=== PATIENT | male | born 1965 | race Caucasian/White ===

== ENCOUNTER 2020-02-08 15:35 | Outpatient (REF) | payer BC, SELFPAY | END 2020-02-08 15:36 | disposition home or self-care (01) | LOC: HO.LAB 15:35 | PROVIDERS: PCP Internal Medicine; Visit Provider Internal Medicine | DX: Z20.828 Contact with and (suspected) exposure to other viral communicable diseases (principal) | CPT/HCPCS: U0003 ==

== ENCOUNTER 2020-03-25 09:12 | Outpatient (REF) | payer BC, SELFPAY ==
[2020-03-25 10:17] LABS: MANUAL DIFF FLAG NO
[2020-03-25 10:23] LABS: Basophils Absolute Auto 0.1 X10*3/uL (0.0-0.2); Basophils Percent Auto 1.2 % (0-2); Eosinophils Absolute Auto 0.3 X10*3/uL (0.0-0.4); Eosinophils Percent Auto 5.3 % (0-4); Hematocrit 40.7 % (42-52); Hemoglobin 13.2 g/dl (14.0-18.0); Imm Gran Abs Auto 0.03 X10*3/uL (0.00-0.03); Imm Gran Pct Auto 0.5 % (0.0-0.4); Lymphocytes Percent Auto 32.6 % (20-40); Mean Corpuscular HGB Conc 32.4 g/dl (31.0-36.0); Mean Corpuscular Hemoglobin 26.5 pg (27.0-33.0); Mean Corpuscular Volume 81.6 fL (80-98); Mean Platelet Volume 10.7 fL (9.4-12.4); Monocytes Absolute Auto 0.6 X10*3/uL (0.1-1.2); Monocytes Percent Auto 10.5 % (2-11); Neutrophils Percent Auto 49.9 % (45-73); Platelet Count 244 X10*3/uL (160-400); Red Blood Count 4.99 X10*6/uL (4.60-5.80); Red Cell Distribution Width 12.7 % (11.0-16.0)
[2020-03-25 10:48] LABS: Alanine Aminotransferase 85 U/L (0-40); Albumin Level 3.8 g/dL (3.5-5.0); Alkaline Phosphatase 68 U/L (39-117); Anion Gap 14 (12-20); Aspartate Amino Transferase 39 U/L (5-37); Bilirubin Total 0.6 mg/dL (0.0-1.0); Blood Urea Nitrogen 16 mg/dL (9-16); Calcium 8.6 mg/dL (8.4-10.2); Carbon Dioxide 25 mmol/L (22-29); Chloride 106 mmol/L (96-108); Estimated Glomerular Filt Rate 48; Glucose Random 109 mg/dL (60-115); Potassium 4.5 mmol/l (3.3-5.1); Sodium 140 mmol/L (135-145); Total Protein 7.1 g/dL (6.5-8.0)
[2020-03-25 11:10] LABS: TSH reflex Free T4 2.34 mIU/mL (0.32-4.0)
== END 2020-03-25 09:13 | disposition home or self-care (01) ==
LOC: HO.10HDL 09:12
PROVIDERS: Visit Provider Internal Medicine
DX: R42 Dizziness and giddiness (principal)
CPT/HCPCS: 36415; 80053; 84443; 85025

== ENCOUNTER → 2020-04-06 10:40 | Outpatient (REF) | payer BC, SELFPAY ==
--- NOTE | 2020-04-06 10:43 | CA_ITS ---
Transthoracic Echocardiogram Patient (Last, First, Middle): Kevyn Harper, Gender: Male Date of : 1965 Age: 54 Procedure Date: 04/06/2020 Procedure Type: Transthoracic Echocardiogram Location: OP Height: 172.72 cm Weight: 94.35 kg BSA: 2.08 m2 Heart Rate: bpm BP: 120 / 80 mmHg External Grinder Tool: ESME Bateman MD: Bryce Dejesus MD Symptoms: R42 - Dizziness and giddiness Study Quality: Fair ECG Rhythm: Sinus Conclusions: - The left ventricular systolic function is normal. The visually estimated ejection fraction is between 55-60%. - There is mild calcification of the aortic valve. - No obvious valvular pathology seen on this study. Findings Left Ventricle Normal left ventricular cavity size. There is normal left ventricular wall thickness. The left ventricular systolic function is normal. The visually estimated ejection fraction is between 55-60%. There is no evidence of regional wall motion abnormalities. Diastolic function is normal for age. Right Ventricle Normal right ventricular cavity size and systolic function. Atria Both atria are normal in size. Contrast study for right to left shunting is negative. Contrast study for right to left shunting is negative with Valsalva maneuver. Aortic Valve There is a normal trileaflet aortic valve. There is mild calcification of the aortic valve. There is no aortic valve stenosis. There is no aortic valve regurgitation. Mitral Valve The mitral valve appears normal. There is trace mitral valve regurgitation. There is no mitral valve stenosis. Pulmonic Valve The pulmonic valve was not well visualized. Tricuspid Valve Normal tricuspid valve structure. There is no tricuspid valve regurgitation. The pulmonary artery systolic pressure is normal. Great Vessels The aortic annulus, sinuses of valsalva, and asc aorta are normal in size. Venous The inferior vena cava is normal in size and collapses greater than 50% with inspiration. Pericardium/Pleural There is no evidence of pericardial effusion. Prior Study Comparison No significant change compared to prior study dated: 04/28/2018. Recommendations, Care & Conclusions No obvious valvular pathology seen on this study. Measurements 2D Linear Measurements IVSd: 1.00 0.6-0.9/0.6-1.0 cm LVIDd: 4.41 3.9-5.3/4.2-5.9 cm LVIDd Index: 2.12 2.4-3.2/2.2-3.1 cm/m2 LVIDs: 3.17 2.0-3.6 cm LVPWd: 0.98 0.7-1.1 cm Ao Root: 3.10 2.1-3.5 cm LA Diam: 3.00 2.7-3.8/3.0-4.0 cm LAIDs Index: 1.44 1.5-2.3 cm/m2 LV Mass: 182.54 67-162/88-224 g LV Mass Index: 87.76 43-95/49-115 g/m2 LVOT Diam: 2.00 3.0+(-)1.3 cm 2D Systolic Function EF 4C: 53.50 >55% EF 2C: 57.80 >55% EF BiP: 56.00 >55% Mitral Valve MV Pk E: 0.79 MV PK A: 0.74 MV Decel Time: 169.00 E/A: 1.10 E'Lateral: 9.57 E'Medial: 7.25 E/E' Med: 10.80 E/E' Lat: 8.20 PHT: 50.00 MVA PHT: 4.40 Decel Clinch: 4.65 Aortic Valve AoV Pk Samson: 1.58 AoV Mn Samson: 1.04 AoV VTI: 0.26 AoV Pk Grad: 10.00 Aov Mn Grad: 5.00 TRICIA Cont.VTI: 2.71 LVOT LVOT Pk Samson: 1.26 LVOT Mn Samson: 0.84 LVOT VTI: 0.23 LVOT Pk Grad: 6.00 LVOT Mn Grad: 3.00 LVOT Diam: 2.00 LVOT Area: 3.14 Diastolic Function MV Pk E: 0.79 MV Pk A: 0.74 E/A: 1.10 E'Medial: 7.25 E/E' Med: 10.80 E' Laterial: 9.57 E/E' Lat: 8.20 Tricuspid Valve TR Pk Samson: 2.00 TR Pk Grad: 16.00 RA Press: 3.00 RVSP: 19.00 Great Vessels Aorta Ao Root-2D: 3.10 2.0-3.7 cm Ao Asc: 3.10 2.1-3.4 cm Ao Arch: 3.40 Updated in Other Vendor System with Status of Final Marty Chandra MD electronically signed on 04/09/2020 11:46:02 AM with status of Final
== END ==
LOC: HO.CARD 10:40
PROVIDERS: PCP Internal Medicine; Visit Provider Internal Medicine
DX: R42 Dizziness and giddiness (principal)
CPT/HCPCS: 93306

== ENCOUNTER → 2020-04-14 07:43 | Outpatient (REF) | payer BC, SELFPAY ==
--- NOTE | 2020-04-14 07:52 | ECG_ITS ---
Hook-up date: 2020-04-14 09:26:00 Duration: 47:59:00 Test Indications: DIZZINESS, GIDDINESS Medications: 074920 QRS complexes 1 Ventricular ectopics which represent <1 % of total QRS comp. 7 Supraventricular ectopics which represent <1 % of total QRS comp. * Paced QRS complexs which represent % of total QRS comp. VENTRICULAR ECTOPY 1 Isolated 0 Bigeminal Cycles 0 Couplets 0 Runs 0 Beats in Runs * Beats LONGEST at * BPM at :: -- * Beats FASTEST at * BPM at :: -- SUPRAVENTRICULAR ECTOPY 4 Isolated 0 Couplets 1 Runs 3 Beats in Runs 3 Beats LONGEST at 144 BPM at 15:26:52 2020-04-14 3 Beats FASTEST at 144 BPM at 15:26:52 2020-04-14 HEART RATES 58 MIN at 07:53:38 2020-04-15 82 AVG 123 MAX at 15:28:42 2020-04-14 LONGEST RR 1.0560 secs at 07:18:02 2020-04-15 S-T LEVELS Channel 1 - 128 mm at 09:26:00 2020-04-14 - 128 mm at 09:26:00 2020-04-14 Channel 2 - 128 mm at 09:26:00 2020-04-14 - 128 mm at 09:26:00 2020-04-14 Channel 3 - 128 mm at 02:84:51 -- - 128 mm at 02:84:51 Basic rhythm Normal sinus rhythm No long pause or profound bradycardia No dangerous dysrhythm periods No diary submitted Referred By: Bryce Dejesus Overread By: TOLU ARMSTRONG MD
== END ==
LOC: HO.CARD 07:43
PROVIDERS: PCP Internal Medicine; Visit Provider Internal Medicine
DX: R42 Dizziness and giddiness (principal)
CPT/HCPCS: 93225; 93226

== ENCOUNTER 2020-06-07 08:48 | Outpatient (REF) | payer BC, SELFPAY ==
[2020-06-07 10:03] LABS: MANUAL DIFF FLAG NO
[2020-06-07 10:12] LABS: Basophils Absolute Auto 0.1 X10*3/uL (0.0-0.2); Basophils Percent Auto 0.9 % (0-2); Eosinophils Absolute Auto 0.2 X10*3/uL (0.0-0.4); Eosinophils Percent Auto 2.7 % (0-4); Hematocrit 40.2 % (42-52); Hemoglobin 13.2 g/dl (14.0-18.0); Imm Gran Abs Auto 0.02 X10*3/uL (0.00-0.03); Imm Gran Pct Auto 0.3 % (0.0-0.4); Lymphocytes Absolute Auto 2.2 X10*3/uL (1.2-4.9); Mean Corpuscular HGB Conc 32.8 g/dl (31.0-36.0); Mean Corpuscular Hemoglobin 26.8 pg (27.0-33.0); Mean Corpuscular Volume 81.7 fL (80-98); Mean Platelet Volume 10.4 fL (9.4-12.4); Monocytes Absolute Auto 0.7 X10*3/uL (0.1-1.2); Monocytes Percent Auto 9.9 % (2-11); Neutrophils Absolute Auto 3.5 X10*3/uL (2.0-8.3); Neutrophils Percent Auto 53.2 % (45-73); Platelet Count 255 X10*3/uL (160-400); Red Blood Count 4.92 X10*6/uL (4.60-5.80); Red Cell Distribution Width 12.9 % (11.0-16.0); White Blood Count 6.6 X10*3/uL (4.8-10.8)
[2020-06-07 10:29] LABS: Glucose Urine UA NEG (NEG); Leukocyte Esterase Urine NEG (NEG); Nitrite Urine NEG (NEG); PH 5.5 (5.0-8.0); Specific Gravity - Urine >= 1.030 (1.005-1.025); Urine Blood TRACE (NEG); Urine Ketones NEG (NEG); Urine Protein NEG (NEG-TRACE)
[2020-06-07 10:33] LABS: Appearance Urine CLEAR; Color Urine STRAW
[2020-06-07 10:40] LABS: RBC Urine 0-2 /HPF (0); Squamous Epithelial Cell Urine TRACE /LPF; WBC Urine 0 /HPF (0-4)
[2020-06-07 10:49] LABS: Alanine Aminotransferase 44 U/L (0-40); Albumin Level 3.8 g/dL (3.5-5.0); Alkaline Phosphatase 66 U/L (39-117); Anion Gap 11 (12-20); Aspartate Amino Transferase 27 U/L (5-37); Blood Urea Nitrogen 17 mg/dL (9-16); Calcium 8.6 mg/dL (8.4-10.2); Carbon Dioxide 26 mmol/L (22-29); Chloride 107 mmol/L (96-108); Cholesterol 170 mg/dL; Estimated Glomerular Filt Rate 46; Glucose Fasting 100 mg/dL (60-99); HDL Cholesterol 31 mg/dL; Iron 85 mcg/dL (45-160); LDL Cholesterol Calculated 103 mg/dl; Percent Iron Saturation 31 % (15-50); Potassium 4.1 mmol/L (3.3-5.1); Sodium 140 mmol/L (135-145); Total Iron Binding Capacity 275 mcg/dL (228-428); Triglycerides 183 mg/dL; Unsaturated Iron Binding 190 ug/dL
[2020-06-07 10:53] LABS: TSH reflex Free T4 4.32 uIU/mL (0.32-4.0); Vitamin D 25-OH Total 35.2 ng/mL (>30)
[2020-06-07 11:40] LABS: Free T4 (Free Thyroxine) 0.96 ng/dL (0.71-1.85)
== END 2020-06-07 08:49 | disposition home or self-care (01) ==
LOC: HO.10HDL 08:48
PROVIDERS: Visit Provider Internal Medicine
DX: E78.5 Hyperlipidemia, unspecified (principal); N18.30 Chronic kidney disease, stage 3 unspecified; R73.01 Impaired fasting glucose; D50.9 Iron deficiency anemia, unspecified; E55.9 Vitamin D deficiency, unspecified; E66.9 Obesity, unspecified
CPT/HCPCS: 36415; 80053; 80061; 81001; 82306; 83540; 84439; 84443; 85025

== ENCOUNTER 2020-11-03 09:43 | Outpatient (REF) | payer BC, SELFPAY ==
[2020-11-03 11:04] LABS: Alanine Aminotransferase 32 U/L (0-40); Alkaline Phosphatase 63 U/L (39-117); Anion Gap 12 (12-20); Aspartate Amino Transferase 22 U/L (5-37); Bilirubin Total 0.7 mg/dL (0.0-1.0); Blood Urea Nitrogen 14 mg/dL (9-16); Calcium 9.4 mg/dL (8.4-10.2); Carbon Dioxide 26 mmol/L (22-29); Chloride 105 mmol/L (96-108); Estimated Glomerular Filt Rate 45; Glucose Random 107 mg/dL (60-115); Potassium 4.4 mmol/L (3.3-5.1); Sodium 139 mmol/L (135-145); Total Protein 7.2 g/dL (6.5-8.0)
== END 2020-11-03 09:44 | disposition home or self-care (01) ==
LOC: HO.10HDL 09:43
PROVIDERS: PCP Internal Medicine; Visit Provider Internal Medicine
DX: I12.9 Hypertensive chronic kidney disease with stage 1 through stage 4 chronic kidney disease, or unspecified chronic kidney disease (principal); N18.31 Chronic kidney disease, stage 3a
CPT/HCPCS: 36415; 80053

== ENCOUNTER 2021-02-23 08:01 | Outpatient (REF) | payer BC, SELFPAY ==
[2021-02-23 10:15] LABS: MANUAL DIFF FLAG NO
[2021-02-23 10:19] LABS: Basophils Absolute Auto 0.1 X10*3/uL (0.0-0.2); Basophils Percent Auto 0.9 % (0-2); Eosinophils Absolute Auto 0.2 X10*3/uL (0.0-0.4); Eosinophils Percent Auto 3.3 % (0-4); Hematocrit 39.8 % (42.0-52.0); Hemoglobin 13.2 g/dl (14.0-18.0); Imm Gran Abs Auto 0.01 X10*3/uL (0.00-0.03); Imm Gran Pct Auto 0.2 % (0.0-0.4); Lymphocytes Absolute Auto 1.9 X10*3/uL (1.2-4.9); Lymphocytes Percent Auto 32.3 % (20-40); Mean Corpuscular HGB Conc 33.2 g/dl (31.0-36.0); Mean Corpuscular Volume 81.6 fL (80.0-98.0); Mean Platelet Volume 10.4 fL (9.4-12.4); Monocytes Absolute Auto 0.6 X10*3/uL (0.1-1.2); Monocytes Percent Auto 10.9 % (2-11); Neutrophils Percent Auto 52.4 % (45-73); Platelet Count 230 X10*3/uL (160-400); Red Blood Count 4.88 X10*6/uL (4.60-5.80); Red Cell Distribution Width 12.6 % (11.0-16.0); White Blood Count 5.8 X10*3/uL (4.8-10.8)
[2021-02-23 10:32] LABS: Appearance Urine CLEAR; Color Urine YELLOW; Glucose Urine UA NEG (NEG); Leukocyte Esterase Urine NEG (NEG); Nitrite Urine NEG (NEG); Specific Gravity - Urine 1.025 (1.005-1.025); Urine Blood NEG (NEG); Urine Ketones NEG (NEG); Urine Protein NEG (NEG-TRACE)
[2021-02-23 10:54] LABS: Creatinine Urine 126.73 mg/dL; Microalbum/Creatinine Ratio Ur 5.5 ug/mg cr
[2021-02-23 11:05] LABS: Alanine Aminotransferase 34 U/L (0-40); Albumin Level 4.1 g/dL (3.5-5.0); Alkaline Phosphatase 53 U/L (39-117); Anion Gap 13 (12-20); Aspartate Amino Transferase 27 U/L (5-37); Bilirubin Total 1.1 mg/dL (0.0-1.0); Blood Urea Nitrogen 20 mg/dL (9-16); Carbon Dioxide 25 mmol/L (22-29); Chloride 103 mmol/L (96-108); Cholesterol 160 mg/dL; Estimated Glomerular Filt Rate 44; Glucose Fasting 95 mg/dL (60-99); HDL Cholesterol 31 mg/dL; Iron 78 mcg/dL (45-160); LDL Cholesterol Calculated 105 mg/dl; Percent Iron Saturation 28 % (15-50); Potassium 4.4 mmol/L (3.3-5.1); Sodium 137 mmol/L (135-145); Total Iron Binding Capacity 282 mcg/dL (228-428); Total Protein 7.4 g/dL (6.5-8.0); Triglycerides 121 mg/dL; Unsaturated Iron Binding 204 ug/dL
[2021-02-23 11:29] LABS: TSH reflex Free T4 2.04 uIU/mL (0.32-4.0); Vitamin D 25-OH Total 41.5 ng/mL (>30)
[2021-02-23 12:01] LABS: Prostate Specific Antigen Scr 1.37 ng/mL (<0.05-4.0)
== END 2021-02-23 08:02 | disposition home or self-care (01) ==
LOC: HO.10HDL 08:01
PROVIDERS: Visit Provider Internal Medicine
DX: Z00.00 Encounter for general adult medical examination without abnormal findings (principal); Z12.5 Encounter for screening for malignant neoplasm of prostate; E78.00 Pure hypercholesterolemia, unspecified; N18.31 Chronic kidney disease, stage 3a; R03.0 Elevated blood-pressure reading, without diagnosis of hypertension; E66.9 Obesity, unspecified; E55.9 Vitamin D deficiency, unspecified; D50.9 Iron deficiency anemia, unspecified
CPT/HCPCS: 36415; 80053; 80061; 81003; 82043; 82306; 83540; 84153; 84443; 85025

== ENCOUNTER 2021-03-17 09:12 | Outpatient (REF) | payer BC, SELFPAY ==
--- NOTE | ~2021-03-17 | XR_ITS ---
EXAMINATION: XR LUMBOSACRAL SPINE CLINICAL INFORMATION: Low back pain COMPARISON: 04/10/2010 TECHNIQUE: Three views of the lumbosacral spine. FINDINGS: Frontal and lateral radiographs of the lumbar spine show moderate degenerative disc disease at L5-S1, with disc space narrowing and endplate sclerosis. There are also 6 mm of retrolisthesis, unchanged. Posterior osteophyte ridge formation is also evident at this level. Vertebral body height and alignment are otherwise maintained. There are no bone lesions. XR/XR lumbar spine 2-3V IMPRESSION: L5-S1 degenerative disc disease progressed since 04/10/2010, with no significant change in 6 mm of degenerative retrolisthesis.
== END 2021-03-17 09:13 | disposition home or self-care (01) ==
LOC: HO.XRAY 09:12
PROVIDERS: PCP Internal Medicine; Visit Provider Internal Medicine
DX: M54.50 Low back pain, unspecified (principal)
CPT/HCPCS: 72100

== ENCOUNTER 2021-07-05 10:06 | Outpatient (REF) | payer OTHER, SELFPAY ==
[2021-07-05 10:31] LABS: MANUAL DIFF FLAG NO
[2021-07-05 10:37] LABS: Basophils Absolute Auto 0.1 X10*3/uL (0.0-0.2); Basophils Percent Auto 0.9 % (0-2); Eosinophils Absolute Auto 0.2 X10*3/uL (0.0-0.4); Eosinophils Percent Auto 3.6 % (0-4); Hematocrit 40.2 % (42.0-52.0); Hemoglobin 13.3 g/dl (14.0-18.0); Imm Gran Abs Auto 0.02 X10*3/uL (0.00-0.03); Imm Gran Pct Auto 0.4 % (0.0-0.4); Lymphocytes Absolute Auto 1.8 X10*3/uL (1.2-4.9); Lymphocytes Percent Auto 33.1 % (20-40); Mean Corpuscular HGB Conc 33.1 g/dl (31.0-36.0); Mean Corpuscular Hemoglobin 26.9 pg (27.0-33.0); Mean Corpuscular Volume 81.4 fL (80.0-98.0); Mean Platelet Volume 9.9 fL (9.4-12.4); Monocytes Absolute Auto 0.5 X10*3/uL (0.1-1.2); Monocytes Percent Auto 9.4 % (2-11); Neutrophils Absolute Auto 2.9 x10*3/uL (2.0-8.3); Neutrophils Percent Auto 52.6 % (45-73); Platelet Count 259 X10*3/uL (160-400); Red Blood Count 4.94 X10*6/uL (4.60-5.80); Red Cell Distribution Width 12.9 % (11.0-16.0); White Blood Count 5.6 X10*3/uL (4.8-10.8)
[2021-07-05 10:54] LABS: Estimated Average Glucose 117 mg/dL; Hemoglobin A1c % 5.7 %
[2021-07-05 11:30] LABS: Alanine Aminotransferase 35 U/L (0-40); Albumin Level 4.1 g/dL (3.5-5.0); Alkaline Phosphatase 59 U/L (39-117); Anion Gap 9 (12-20); Aspartate Amino Transferase 28 U/L (5-37); Bilirubin Total 1.2 mg/dL (0.0-1.0); Blood Urea Nitrogen 13 mg/dL (9-16); Calcium 9.5 mg/dL (8.4-10.2); Carbon Dioxide 27 mmol/L (22-29); Chloride 104 mmol/L (96-108); Cholesterol 164 mg/dL; Estimated Glomerular Filt Rate 42; Glucose Fasting 103 mg/dL (60-99); HDL Cholesterol 30 mg/dL; LDL Cholesterol Calculated 102 mg/dl; Potassium 4.4 mmol/L (3.3-5.1); Sodium 136 mmol/L (135-145); Total Protein 7.2 g/dL (6.5-8.0); Triglycerides 160 mg/dL
[2021-07-05 11:50] LABS: TSH reflex Free T4 2.24 uIU/mL (0.32-4.0); Vitamin D 25-OH Total 39.6 ng/mL (>30)
[2021-07-05 13:23] LABS: Appearance Urine CLEAR; Color Urine YELLOW; Glucose Urine UA NEG (NEG); Leukocyte Esterase Urine NEG (NEG); Nitrite Urine NEG (NEG); Specific Gravity - Urine 1.025 (1.005-1.025); Urine Blood NEG (NEG); Urine Ketones NEG (NEG); Urine Protein NEG (NEG-TRACE)
== END 2021-07-05 10:07 | disposition home or self-care (01) ==
LOC: HO.10HDL 10:06
PROVIDERS: Visit Provider Internal Medicine
DX: I10 Essential (primary) hypertension (principal); E55.9 Vitamin D deficiency, unspecified; E78.00 Pure hypercholesterolemia, unspecified; R73.01 Impaired fasting glucose
CPT/HCPCS: 36415; 80053; 80061; 81003; 82306; 83036; 84443; 85025

== ENCOUNTER 2021-10-02 11:55 | Outpatient (REF) | payer OTHER, SELFPAY ==
[2021-10-02 13:56] LABS: Hematocrit 40.5 % (42.0-52.0); Hemoglobin 13.4 g/dl (14.0-18.0); Mean Corpuscular HGB Conc 33.1 g/dl (31.0-36.0); Mean Corpuscular Hemoglobin 27.2 pg (27.0-33.0); Mean Corpuscular Volume 82.2 fL (80.0-98.0); Mean Platelet Volume 10.8 fL (9.4-12.4); Platelet Count 245 X10*3/uL (160-400); Red Blood Count 4.93 X10*6/uL (4.60-5.80); Red Cell Distribution Width 12.8 % (11.0-16.0); White Blood Count 5.7 X10*3/uL (4.8-10.8)
[2021-10-02 14:02] LABS: Appearance Urine CLEAR; Color Urine YELLOW; Glucose Urine UA NEG (NEG); Leukocyte Esterase Urine NEG (NEG); Nitrite Urine NEG (NEG); Specific Gravity - Urine >= 1.030 (1.005-1.025); Urine Blood NEG (NEG); Urine Ketones NEG (NEG); Urine Protein NEG (NEG-TRACE)
[2021-10-02 14:45] LABS: Alanine Aminotransferase 23 U/L (0-40); Alkaline Phosphatase 57 U/L (39-117); Anion Gap 11 (12-20); Aspartate Amino Transferase 19 U/L (5-37); Bilirubin Total 0.9 mg/dL (0.0-1.0); Blood Urea Nitrogen 12 mg/dL (9-16); Calcium 9.2 mg/dL (8.4-10.2); Carbon Dioxide 26 mmol/L (22-29); Chloride 105 mmol/L (96-108); Cholesterol 145 mg/dL; Estimated Glomerular Filt Rate 44; Glucose Fasting 144 mg/dL (60-99); HDL Cholesterol 32 mg/dL; LDL Cholesterol Calculated 88 mg/dl; Potassium 4.3 mmol/L (3.3-5.1); RBC Urine 0 /HPF (0); Sodium 138 mmol/L (135-145); Total Protein 7.1 g/dL (6.5-8.0); Triglycerides 127 mg/dL
[2021-10-02 15:36] LABS: Total Protein Urine Random < 7 mg/dL (<12)
== END 2021-10-02 11:56 | disposition home or self-care (01) ==
LOC: HO.10HDL 11:55
PROVIDERS: Visit Provider Internal Medicine
DX: N18.30 Chronic kidney disease, stage 3 unspecified (principal)
CPT/HCPCS: 36415; 80053; 80061; 81001; 84156; 85027

== ENCOUNTER 2022-01-22 09:18 | Outpatient (REF) | payer OTHER, SELFPAY ==
[2022-01-22 10:27] LABS: MANUAL DIFF FLAG NO
[2022-01-22 10:34] LABS: Basophils Absolute Auto 0.1 X10*3/uL (0.0-0.2); Basophils Percent Auto 0.8 % (0-2); Eosinophils Absolute Auto 0.2 X10*3/uL (0.0-0.4); Hematocrit 39.4 % (42.0-52.0); Hemoglobin 13.1 g/dl (14.0-18.0); Imm Gran Abs Auto 0.02 X10*3/uL (0.00-0.03); Imm Gran Pct Auto 0.3 % (0.0-0.4); Lymphocytes Absolute Auto 1.9 X10*3/uL (1.2-4.9); Lymphocytes Percent Auto 29.2 % (20-40); Mean Corpuscular HGB Conc 33.2 g/dl (31.0-36.0); Mean Corpuscular Hemoglobin 26.8 pg (27.0-33.0); Mean Corpuscular Volume 80.6 fL (80.0-98.0); Mean Platelet Volume 10.1 fL (9.4-12.4); Monocytes Absolute Auto 0.5 X10*3/uL (0.1-1.2); Monocytes Percent Auto 8.2 % (2-11); Neutrophils Absolute Auto 3.7 x10*3/uL (2.0-8.3); Neutrophils Percent Auto 58.5 % (45-73); Platelet Count 251 X10*3/uL (160-400); Red Blood Count 4.89 X10*6/uL (4.60-5.80); Red Cell Distribution Width 12.7 % (11.0-16.0); White Blood Count 6.3 X10*3/uL (4.8-10.8)
[2022-01-22 10:59] LABS: Alanine Aminotransferase 23 U/L (0-40); Albumin Level 4.1 g/dL (3.5-5.0); Alkaline Phosphatase 57 U/L (39-117); Anion Gap 14 (12-20); Aspartate Amino Transferase 20 U/L (5-37); Blood Urea Nitrogen 18 mg/dL (9-16); Carbon Dioxide 24 mmol/L (22-29); Chloride 105 mmol/L (96-108); Cholesterol 157 mg/dL; Estimated Glomerular Filt Rate 51; Glucose Fasting 109 mg/dL (60-99); HDL Cholesterol 33 mg/dL; LDL Cholesterol Calculated 102 mg/dl; Potassium 4.5 mmol/L (3.3-5.1); Sodium 138 mmol/L (135-145); Total Protein 7.1 g/dL (6.5-8.0); Triglycerides 110 mg/dL
[2022-01-22 11:22] LABS: Prostate Specific Antigen Scr 1.32 ng/mL (<0.05-4.0); TSH reflex Free T4 1.52 uIU/mL (0.32-4.0); Vitamin D 25-OH Total 38.7 ng/mL (>30)
[2022-01-22 13:58] LABS: Appearance Urine Cloudy; Color Urine Yellow; Glucose Urine UA Negative (Negative); Leukocyte Esterase Urine Negative (Negative); Nitrite Urine Negative (Negative); PH 5.5 (5.0-9.0); Urine Blood Negative (Negative); Urine Ketones Negative (Negative); Urine Protein Negative (Neg-Trace)
== END 2022-01-22 09:19 | disposition home or self-care (01) ==
LOC: HO.10HDL 09:18
PROVIDERS: Visit Provider Internal Medicine
DX: Z00.00 Encounter for general adult medical examination without abnormal findings (principal); Z12.5 Encounter for screening for malignant neoplasm of prostate; E78.00 Pure hypercholesterolemia, unspecified; E55.9 Vitamin D deficiency, unspecified; I10 Essential (primary) hypertension
CPT/HCPCS: 36415; 80053; 80061; 81003; 82306; 84153; 84443; 85025

== ENCOUNTER 2022-07-09 09:14 | Outpatient (REF) | payer OTHER, SELFPAY ==
[2022-07-09 10:28] LABS: MANUAL DIFF FLAG NO
[2022-07-09 10:34] LABS: Basophils Absolute Auto 0.1 X10*3/uL (0.0-0.2); Basophils Percent Auto 0.8 % (0-2); Eosinophils Absolute Auto 0.2 X10*3/uL (0.0-0.4); Eosinophils Percent Auto 3.6 % (0-4); Hematocrit 41.8 % (42.0-52.0); Hemoglobin 13.8 g/dl (14.0-18.0); Imm Gran Abs Auto 0.04 X10*3/uL (0.00-0.03); Imm Gran Pct Auto 0.7 % (0.0-0.4); Lymphocytes Absolute Auto 1.9 X10*3/uL (1.2-4.9); Mean Corpuscular Hemoglobin 26.6 pg (27.0-33.0); Mean Corpuscular Volume 80.7 fL (80.0-98.0); Mean Platelet Volume 10.8 fL (9.4-12.4); Monocytes Absolute Auto 0.6 X10*3/uL (0.1-1.2); Monocytes Percent Auto 10.2 % (2-11); Neutrophils Absolute Auto 3.3 x10*3/uL (2.0-8.3); Neutrophils Percent Auto 53.7 % (45-73); Platelet Count 271 X10*3/uL (160-400); Red Blood Count 5.18 X10*6/uL (4.60-5.80); Red Cell Distribution Width 12.6 % (11.0-16.0); White Blood Count 6.1 X10*3/uL (4.8-10.8)
[2022-07-09 10:40] LABS: Appearance Urine Clear; Color Urine Yellow; Glucose Urine UA Negative (Negative); Leukocyte Esterase Urine Negative (Negative); Nitrite Urine Negative (Negative); PH 5.5 (5.0-9.0); UMIC TRIGGER UACC YES; Urine Blood Negative (Negative); Urine Ketones Negative (Negative); Urine Protein 30 (1+) mg/dL (Neg-Trace)
[2022-07-09 10:45] LABS: Bacteria Urine None Seen (None Seen); Hyaline Casts Urine 0-2 /LPF (0-2); RBC Urine 0-2 /HPF (0-2); Squamous Epithelial Cell Urine 0-2 /HPF (0-2); WBC Urine 0-5 /HPF (0-5)
[2022-07-09 11:15] LABS: Alanine Aminotransferase 30 U/L (0-40); Albumin Level 3.7 g/dL (3.5-5.0); Alkaline Phosphatase 63 U/L (39-117); Anion Gap 11 (12-20); Aspartate Amino Transferase 21 U/L (5-37); Bilirubin Total 0.9 mg/dL (0.0-1.0); Blood Urea Nitrogen 14 mg/dL (9-16); Carbon Dioxide 29 mmol/L (22-29); Chloride 104 mmol/L (96-108); Cholesterol 183 mg/dL; Estimated Glomerular Filt Rate 45; Glucose Fasting 112 mg/dL (60-99); HDL Cholesterol 37 mg/dL; LDL Cholesterol Calculated 117 mg/dl; Potassium 4.5 mmol/L (3.3-5.1); Sodium 139 mmol/L (135-145); TSH reflex Free T4 3.43 uIU/mL (0.32-4.0); Total Protein 6.7 g/dL (6.5-8.0); Triglycerides 146 mg/dL
[2022-07-09 12:00] LABS: Vitamin D 25-OH Total 47.2 ng/mL (>30)
== END 2022-07-09 09:15 | disposition home or self-care (01) ==
LOC: HO.10HDL 09:14
PROVIDERS: Visit Provider Internal Medicine
DX: E78.00 Pure hypercholesterolemia, unspecified (principal); E55.9 Vitamin D deficiency, unspecified; I10 Essential (primary) hypertension
CPT/HCPCS: 36415; 80053; 80061; 81001; 82306; 84443; 85025

== ENCOUNTER 2022-08-14 10:24 | Outpatient (REF) | payer MEDICAID, SELFPAY ==
--- NOTE | ~2022-08-14 | XR_ITS ---
EXAMINATION: XR SHOULDER, RIGHT CLINICAL INFORMATION: Pain COMPARISON: None available. TECHNIQUE: AP external rotation, Grashey, scapular Y, and axillary views of the right shoulder. FINDINGS: Bone alignment is normal. No fracture or dislocation. The glenohumeral joint is normal. Mild arthritis at the acromioclavicular joint. Soft tissues are normal. XR/XR shoulder RT min 2V IMPRESSION: Mild arthritis at the acromioclavicular joint.
== END 2022-08-14 10:25 | disposition home or self-care (01) ==
LOC: HO.XRAY 10:24
PROVIDERS: PCP Internal Medicine; Visit Provider Internal Medicine
DX: M25.511 Pain in right shoulder (principal)
CPT/HCPCS: 73030

== ENCOUNTER 2023-01-22 09:02 | Outpatient (REF) | payer OTHER, MEDICAID, SELFPAY ==
[2023-01-22 11:06] LABS: MANUAL DIFF FLAG NO
[2023-01-22 11:10] LABS: Appearance Urine Clear; Color Urine Yellow; Glucose Urine UA >=1000 mg/dL (Negative); Leukocyte Esterase Urine Negative (Negative); Nitrite Urine Negative (Negative); PH 5.5 (5.0-9.0); Specific Gravity - Urine >= 1.030 (1.005-1.025); UMIC TRIGGER UACC YES; Urine Blood Trace (Negative); Urine Ketones Negative (Negative); Urine Protein 100 (2+) mg/dL (Neg-Trace)
[2023-01-22 11:11] LABS: Basophils Percent Auto 0.7 % (0-2); Eosinophils Absolute Auto 0.3 X10*3/uL (0.0-0.4); Eosinophils Percent Auto 4.9 % (0-4); Hemoglobin 13.6 g/dl (14.0-18.0); Imm Gran Abs Auto 0.03 X10*3/uL (0.00-0.03); Imm Gran Pct Auto 0.5 % (0.0-0.4); Lymphocytes Absolute Auto 1.7 X10*3/uL (1.2-4.9); Lymphocytes Percent Auto 28.1 % (20-40); Mean Corpuscular HGB Conc 32.4 g/dl (31.0-36.0); Mean Corpuscular Hemoglobin 26.5 pg (27.0-33.0); Mean Corpuscular Volume 81.9 fL (80.0-98.0); Mean Platelet Volume 10.3 fL (9.4-12.4); Monocytes Absolute Auto 0.7 X10*3/uL (0.1-1.2); Monocytes Percent Auto 11.1 % (2-11); Neutrophils Absolute Auto 3.3 x10*3/uL (2.0-8.3); Neutrophils Percent Auto 54.7 % (45-73); Platelet Count 241 X10*3/uL (160-400); Red Blood Count 5.13 X10*6/uL (4.60-5.80)
[2023-01-22 11:19] LABS: Estimated Average Glucose 114 mg/dL; Hemoglobin A1c % 5.6 % (<6.0)
[2023-01-22 11:26] LABS: Alanine Aminotransferase 25 U/L (0-40); Albumin Level 3.4 g/dL (3.5-5.0); Alkaline Phosphatase 60 U/L (39-117); Anion Gap 12 (12-20); Aspartate Amino Transferase 21 U/L (5-37); Bilirubin Total 0.5 mg/dL (0.0-1.0); Blood Urea Nitrogen 16 mg/dL (9-16); Calcium 8.9 mg/dL (8.4-10.2); Carbon Dioxide 25 mmol/L (22-29); Chloride 108 mmol/L (96-108); Cholesterol 176 mg/dL (<200); Estimated Glomerular Filt Rate 58; Glucose Fasting 107 mg/dL (60-99); HDL Cholesterol 34 mg/dL (>40); LDL Cholesterol Calculated 112 mg/dL (<100); Potassium 4.2 mmol/L (3.3-5.1); Sodium 141 mmol/L (135-145); Total Protein 6.6 g/dL (6.5-8.0); Triglycerides 152 mg/dL (<150)
[2023-01-22 11:30] LABS: Bacteria Urine None Seen (None Seen); RBC Urine 0-2 /HPF (0-2); Squamous Epithelial Cell Urine 0-2 /HPF (0-2); WBC Urine 0-5 /HPF (0-5)
[2023-01-22 11:42] LABS: TSH reflex Free T4 3.99 uIU/mL (0.32-4.0); Vitamin D 25-OH Total 53.9 ng/mL (>30)
[2023-01-22 11:43] LABS: Prostate Specific Antigen Scr 1.73 ng/mL (<0.05-4.0)
[2023-01-22 12:05] LABS: Creatinine Urine 128.85 mg/dL
[2023-01-22 12:22] LABS: Microalbum/Creatinine Ratio Ur 575.8 ug/mg cr (<30)
== END 2023-01-22 09:03 | disposition home or self-care (01) ==
LOC: HO.10HDL 09:02
PROVIDERS: Visit Provider Internal Medicine
DX: Z00.00 Encounter for general adult medical examination without abnormal findings (principal); I12.9 Hypertensive chronic kidney disease with stage 1 through stage 4 chronic kidney disease, or unspecified chronic kidney disease; N18.30 Chronic kidney disease, stage 3 unspecified; E78.00 Pure hypercholesterolemia, unspecified; R73.01 Impaired fasting glucose; R30.0 Dysuria; E55.9 Vitamin D deficiency, unspecified
CPT/HCPCS: 36415; 80053; 80061; 81001; 82043; 82306; 82570; 83036; 84153; 84443; 85025

== ENCOUNTER 2023-01-25 09:17 | Outpatient (AMB) | payer OTHER, MEDICAID, SELFPAY ==
[2023-01-25 09:18] VITALS: BP 126/82; PULSE 76; O2SAT 95; BMI 29.7
--- NOTE | 2023-01-25 09:18 | MHC.PC.OV ---
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 Accompanied by: Self / Same As Patient Allergies No Known Allergies [No Known Allergies*] Allergy (Verified 01/25/23 09:44) Medication List - Last Reconciled 01/25/23 by Bryce Dejesus MD atorvastatin 40 mg PO DAILY cholecalciferol (vitamin D3) 25 mcg PO DAILY dapagliflozin propanediol (Farxiga) 10 mg PO DAILY ferrous sulfate (Feosol) 325 mg PO DAILY lisinopril 20 mg PO DAILY 90 days tizanidine 4 mg PO BEDTIME PRN 30 days Tobacco use date assessed: 01/25/23 Dental Screening Dental Screen Date: 01/25/23 Did you have a dental visit in the last 12 months?: Yes Did you have a dental problem in the last 6 months where you did not have access to dental care?: No Was dental information given to patient?: Patient has dentist HPI CKD, hyperlipidemia, HTN HPI Details Patient comes in today for his follow up visit States that he feels okay He denies any headaches or dizziness Denies any chest pains, no SOB No nausea/vomiting, no abdominal pain No change in bowel habits noted States that he was started on Farxiga by nephrology recently and is wondering if that is something he has to be really on and will be taking for the rest of his life, as it is adding to the cost of his medications Had his follow up labs done a few days ago - to discuss his results Would also like to get his flu shot today [facility] Medical History (Updated 01/25/23 @ 12:31 by Bryce Dejesus MD) Overweight (BMI 25.0-29.9) Lumbar degenerative disc disease Benign essential hypertension Obesity (BMI 30-39.9) Anxiety Vitamin D deficiency Iron deficiency anemia Chronic kidney disease (CKD), stage III (moderate) Pure hypercholesterolemia Lightheadedness Surgical History Status post biopsy of kidney History of excision of epidermal inclusion cyst Status post excision of lipoma History of eye surgery No history of previous surgery Family History Father Brain aneurysm Mother Acute CVA (cerebrovascular accident) CVD (cardiovascular disease) Brother In good health Sister In good health Sister In good health Social History Housing: House Alcohol intake: never Patient Tobacco Use Status: Never used Tobacco Second Hand Smoke Exposure: Yes service: No Current occupational status: employed Cognitive needs: No Hearing needs: No Vision needs: No Questionnaire PHQ-9 Over the last 2 weeks, how often have you been bothered by any of the following problems? 1. Little interest or pleasure in doing things: not at all 2. Feeling down, depressed, or hopeless: not at all 3. Trouble falling or staying asleep, or sleeping too much: not at all 4. Feeling tired or having little energy: not at all 5. Poor appetite or overeating: not at all 6. Feeling bad about yourself - or that you are a failure or have let yourself or your family down: not at all 7. Trouble concentrating on things, such as reading the newspaper or watching television: not at all 8. Moving or speaking so slowly that other people could have noticed. Or the opposite - being so fidgety or restless that you have been moving around a lot more than usual: not at all 9. Thoughts that you would be better off or of hurting yourself in some way: not at all Total score: 0 Depression Screening Interpretation: Negative Depression Screening Done: Yes 45420 - PHQ-9 Billing: Yes Source: Developed by Drs. Franco Clayton, Jennifer Gould, Dago Melchor and colleagues, with an educational madisyn from [employer]. Thrive Questionnaire Date Thrive assessed: 01/25/23 I am a: Patient What is your living situation today?: I have a steady place to live Within the past 12 months, did the food you bought not last and you didn't have the money to get more?: Never true Within the past 12 months, did you worry whether your food would run out before you got money to buy more?: Never true Do you have trouble paying for medicines?: No Do you have trouble getting transportation to medical appointments?: No Do you have trouble paying your heating and electricity bill?: No Do you have trouble taking care of your child, family member or friend?: No Do you have trouble with day-to-day activities such as bathing, preparing meals, shopping, managing finances, etc.?: No Are you currently unemployed and looking for a job?: No Are you interested in more education?: No Please select the resources that you would like help with: None Currently or been in a relationship where the following occur: no concerns reported AUDIT C Alcohol Use Questionnaire (AUDIT-C) 1. How often do you have a drink containing alcohol?: Never 3. How often do you have six or more drinks on one occasion?: Never Total Score: 0 Score Reviewed/Action Taken: Yes DAVON-7 AMB Questionnaire DAVON-7 Date DAVON - 7 assessed: 01/25/23 Feeling nervous, anxious, or on edge: 0 = Not at all Not being able to stop or control worryin = Not at all Worrying too much about different things: 0 = Not at all Trouble relaxin = Not at all Being so restless that it is hard to sit still: 0 = Not at all Becoming easily annoyed or irritable: 0 = Not at all Feeling afraid as if something awful might happen: 0 = Not at all Total DAVON-7 score (0-4 normal; 5-9 mild; 10-14 moderate; 15-21 severe): 0 Source: Developed by Drs. Franco Clayton, Jennifer Gould, Dago Melchor and colleagues, with an educational madisyn from [employer]. Review of Systems Const Denies chills, Reports fatigue (feels that he is slowing down ), Denies fever(s) and Denies headache(s) ENT Denies dysphagia, Denies dizziness, Denies otalgia, Denies headache(s), Denies odynophagia and Denies sore throat Card Denies chest pain, Denies palpitations and Denies dyspnea Resp Denies cough and Denies dyspnea GI Denies abdominal pain, Denies constipation, Denies dysphagia, Denies heartburn, Denies diarrhea, Denies nausea, Denies odynophagia and Denies vomiting Denies dysuria, Denies nocturia and Denies urinary frequency Musc Reports back pain (over the lower back - on and off), Reports arthralgias (right shoulder, on and off) and Reports stiffness (at times) Skin/Breast Denies rash Neuro Denies dizziness and Denies headache(s) Endo Reports fatigue (feels that he is slowing down ) and Denies palpitations Physical exam (Primary Care) Vital Signs: Last Vital Signs Pulse 76 01/25/23 09:18 BP 126/82 01/25/23 09:18 Pulse Ox 95 01/25/23 09:18 Oxygen Delivery Method Room Air 01/25/23 09:18 BMI result Body Mass Index 29.7 Tobacco/Smoking Status: Tobacco use Status Tobacco use date assessed 01/25/23 01/25/23 09:26 Patient Tobacco Use Status Never used Tobacco 01/25/23 09:26 PHQ-9: PHQ-9 Score PHQ-9: Total score 0 01/25/23 09:30 Depression Screening Interpretation: Negative Thrive Assessment: Date of Thrive Assessment Date Thrive assessed 01/25/23 01/25/23 09:26 Currently or been in a relationship where the following occur: no concerns reported Const General: no acute distress and alert HENMT Ears: TM's normal bilaterally and EAC's normal Throat: Yes posterior oropharynx normal and Yes tonsils normal (no TP congestion noted) Neck Neck: Yes no lymphadenopathy and Yes supple Resp Auscultation: clear to auscultation bilaterally, no rales and no wheezes Cardio Rate: regular rate Rhythm: regular rhythm Heart sounds: no murmurs GI Palpation (GI): Soft to palpation and nontender Auscultation: normal bowel sounds General: Yes no CVA tenderness Back/Spine/Pelvis Back: no CVA tenderness Thoracic/Lumbar Spine: lumbar spinal tenderness (mild) Skin Rashes: no rashes Extrem General: Yes no clubbing, cyanosis or edema Office Procedures Flu Questionnaire Does the patient have a severe egg allergy?: No Does the patient have severe life threatening allergies?: No Does the patient have a fever or illness today?: No Has the patient ever had Guillain-[place] Syndrome?: No Has the patient ever had any past reaction to a flu shot?: No Immunizations flu vacc [id number] 6mos up(PF) 60 mcg(15 mcgx4)/0.5 mL IM syringe Performing Provider: Bryce Dejesus MD [facility] Administered by: Jessi Ledezma on 01/25/23 09:34 Dose Route Admin Location Dispensed Lot Number Expiration Date NDC Bean [employer]out Laborer 0.5 mL IM Right Deltoid 0.5 mL [id number] 10/06/23 [id number] [email or web address] VIS Given Date VIS Provided VIS Publication Date 01/25/23 Single Vaccine 20 Eligibility Eligibility Date Funding Source Not [facility] Eligible 01/25/23 Private Results Reviewed Results Reviewed: Laboratory Tests 01/22/23 09:10 WBC 6.0 Hgb 13.6 L Hct 42.0 Plt Count 241 Sodium 141 Potassium 4.2 Creatinine 1.28 Estimated GFR 58 Fasting Glucose 107 H Hemoglobin A1c % 5.6 Calcium 8.9 AST 21 ALT 25 Triglycerides 152 H Cholesterol 176 LDL Cholesterol, Calc 112 H HDL Cholesterol 34 L PSA Screen 1.73 25-OH Vitamin D Total 53.9 TSH 3.99 Ur Specific [place] >= 1.030 H Urine Protein 100 (2+) H Urine Glucose (UA) >=1000 H Urine Blood Trace H Microalb/Creat Ratio 575.8 H Assessment and Plan Assessment & Plan (1) Pure hypercholesterolemia: Code(s): E78.00 - Pure hypercholesterolemia, unspecified Plan: Results of his labs done a couple of days ago reviewed and discussed with patient - advised that his cholesterol levels are okay and are mostly unchanged from previous although ideally, they should be lower than they currently are considering that he is on a statin Rx Reinforced low cholesterol diet Continue Atorvastatin 40 mg QD for now Will recheck his labs and fasting lipids in 6 months for follow up (2) Chronic kidney disease (CKD), stage III (moderate): 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), 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) Code(s): N18.30 - Chronic kidney disease, stage 3 unspecified Qualifiers: Chronic kidney disease stage 3 subtype: stage 3a (GFR 45-59) Qualified Code(s): N18.31 - Chronic kidney disease, stage 3a Plan: Stable - advised that his GFR has improved from previous, likely due to the addition of Farxiga recently He is advised that Farxiga is indicated to help slow down renal function decline in CKD and it looks like it is working for him and that it is likely that he will on this medication for the foreseeable future Advised that as he currently has commercial insurance coverage, he should be able to avail of co-pay cards that a lot of drug manufacturers now offer to patients to help offset the cost of medications and he is instructed to go online to look for these Will continue to monitor his renal function closely Follow-up with nephrology as scheduled (3) Benign essential hypertension: Code(s): I10 - Essential (primary) hypertension Plan: Reinforced low sodium diet - goal is systolic BP of at least 120 mm or less due to his CKD Continue Lisinopril 20 mg QD (4) Iron deficiency anemia: Code(s): D50.9 - Iron deficiency anemia, unspecified Qualifiers: Iron deficiency anemia type: unspecified iron deficiency Qualified Code(s): D50.9 - Iron deficiency anemia, unspecified Plan: Stable - continue Feosol 325 mg QD Will continue to monitor his CBC regularly (5) Vitamin D deficiency: Code(s): E55.9 - Vitamin D deficiency, unspecified Plan: Corrected - continue Vitamin D3 1000 units daily (6) Primary osteoarthritis of right shoulder: Code(s): M19.011 - Primary osteoarthritis, right shoulder Plan: X-rays of the right shoulder done a few months ago revealed (+) mild OA changes He is instructed to just take OTC Tylenol PRN for pain as NSAIDs are contraindicated for him due to his CKD Will consider referring him to orthopedics if his shoulder pain gets worse (7) Lumbar degenerative disc disease: Code(s): M51.36 - Other intervertebral disc degeneration, lumbar region Plan: X-rays of the lumbar spine done back in 2010 showed mild to moderate degenerative disc disease at L5-S1 Lumbar spine x-rays repeated back in March 2021 revealed (+) L5-S1 degenerative disc disease that has progressed slightly since 04/10/2010, with no significant change in 6 mm of degenerative retrolisthesis Reinforced activity and weight-lifting restrictions Will recommend physical therapy if his low back pain continues to bother him Continue Tizanidine 4 mg Q HS PRN (8) Anxiety: Code(s): F41.9 - Anxiety disorder, unspecified Plan: Was on Hydroxyzine 25 mg 1 to 2 times a day as needed but has not needed this for a while Patient instructed to call if he feels his anxiety is starting to get the better of him again at any time (9) Overweight (BMI 25.0-29.9): Code(s): E66.3 - Overweight Plan: Reinforced diet/exercise as tolerated/lose weight - he has been able to lose about 10 to 15 pounds since his last visit Plan Flu vaccine given today Follow up in 6 months Orders: Orders Comprehensive [place]. Panel Fast 6 Months E78.00 - Pure hypercholesterolemia, unspecified Lipid Panel 6 Months E78.00 - Pure hypercholesterolemia, unspecified TSH reflex Free T4 6 Months E78.00 - Pure hypercholesterolemia, unspecified Influenza [id number] Immunization Today Z23 - Encounter for immunization Complete Blood Count Auto Diff 6 Months I10 - Essential (primary) hypertension UA CC w/rflx Micro + Cult 6 Months R30.0 - Dysuria Vitamin D 25-OH Total 6 Months E55.9 - Vitamin D deficiency, unspecified Coding Level of Care Code Est Pt Level 4 (34101) Diagnoses Pure hypercholesterolemia E78.00 Stage 3a chronic kidney disease N18.31 Chronic kidney disease stage 3 subtype: stage 3a (GFR 45-59) Benign essential hypertension I10 Iron deficiency anemia, unspecified iron deficiency anemia type D50.9 Iron deficiency anemia type: unspecified iron deficiency Vitamin D deficiency E55.9 Primary osteoarthritis of right shoulder M19.011 Lumbar degenerative disc disease M51.36 Anxiety F41.9 Overweight (BMI 25.0-29.9) E66.3
== END 2023-01-25 10:03 | disposition home or self-care (01) ==
PROVIDERS: Visit Provider Internal Medicine
DX: Z23 Encounter for immunization (principal); E78.00 Pure hypercholesterolemia, unspecified; I12.9 Hypertensive chronic kidney disease with stage 1 through stage 4 chronic kidney disease, or unspecified chronic kidney disease; N18.31 Chronic kidney disease, stage 3a; D50.9 Iron deficiency anemia, unspecified; E55.9 Vitamin D deficiency, unspecified; M19.011 Primary osteoarthritis, right shoulder; M51.36 Other intervertebral disc degeneration, lumbar region; F41.9 Anxiety disorder, unspecified; E66.3 Overweight
CPT/HCPCS: 90471; 90686; 99214

== ENCOUNTER 2023-07-19 09:43 | Outpatient (REF) | payer OTHER, MEDICAID, SELFPAY ==
[2023-07-19 10:52] LABS: MANUAL DIFF FLAG NO
[2023-07-19 11:02] LABS: Appearance Urine Clear; Basophils Absolute Auto 0.1 X10*3/uL (0.0-0.2); Basophils Percent Auto 1.3 % (0-2); Color Urine Yellow; Eosinophils Absolute Auto 0.2 X10*3/uL (0.0-0.4); Eosinophils Percent Auto 3.4 % (0-4); Glucose Urine UA >=1000 mg/dL (Negative); Hematocrit 38.8 % (42.0-52.0); Hemoglobin 13.2 g/dl (14.0-18.0); Imm Gran Abs Auto 0.03 X10*3/uL (0.00-0.03); Imm Gran Pct Auto 0.5 % (0.0-0.4); Leukocyte Esterase Urine Negative (Negative); Lymphocytes Absolute Auto 1.7 X10*3/uL (1.2-4.9); Lymphocytes Percent Auto 26.3 % (20-40); Mean Corpuscular Volume 79.5 fL (80.0-98.0); Mean Platelet Volume 10.3 fL (9.4-12.4); Monocytes Absolute Auto 0.6 X10*3/uL (0.1-1.2); Monocytes Percent Auto 9.7 % (2-11); Neutrophils Absolute Auto 3.8 x10*3/uL (2.0-8.3); Neutrophils Percent Auto 58.8 % (45-73); Nitrite Urine Negative (Negative); Platelet Count 337 X10*3/uL (160-400); Red Blood Count 4.88 X10*6/uL (4.60-5.80); Red Cell Distribution Width 12.8 % (11.0-16.0); Specific Gravity - Urine 1.025 (1.005-1.025); UMIC TRIGGER UACC YES; Urine Blood Small (1+) (Negative); Urine Ketones Negative (Negative); Urine Protein 300 (3+) mg/dL (Neg-Trace); White Blood Count 6.4 X10*3/uL (4.8-10.8)
[2023-07-19 11:29] LABS: Bacteria Urine None Seen (None Seen); Squamous Epithelial Cell Urine 0-2 /HPF (0-2); WBC Urine 0-5 /HPF (0-5)
[2023-07-19 11:54] LABS: Vitamin D 25-OH Total 26.7 ng/mL (>30)
[2023-07-19 12:20] LABS: Anion Gap 9 (12-20)
[2023-07-19 12:25] LABS: Alanine Aminotransferase 24 U/L (0-40); Albumin Level 2.6 g/dL (3.5-5.0); Alkaline Phosphatase 47 U/L (39-117); Aspartate Amino Transferase 22 U/L (5-37); Bilirubin Total 0.8 mg/dL (0.0-1.0); Blood Urea Nitrogen 15 mg/dL (9-16); Calcium 8.5 mg/dL (8.4-10.2); Carbon Dioxide 25 mmol/L (22-29); Chloride 109 mmol/L (96-108); Cholesterol 229 mg/dL (<200); Estimated Glomerular Filt Rate 46; Glucose Fasting 118 mg/dL (60-99); HDL Cholesterol 37 mg/dL (>40); LDL Cholesterol Calculated 155 mg/dL (<100); Potassium 4.2 mmol/L (3.3-5.1); Sodium 139 mmol/L (135-145); Total Protein 5.8 g/dL (6.5-8.0); Triglycerides 186 mg/dL (<150)
== END 2023-07-19 09:44 | disposition home or self-care (01) ==
LOC: HO.10HDL 09:43
PROVIDERS: Visit Provider Internal Medicine
DX: E55.9 Vitamin D deficiency, unspecified (principal); E78.00 Pure hypercholesterolemia, unspecified; I10 Essential (primary) hypertension
CPT/HCPCS: 36415; 80053; 80061; 81001; 81003; 82306; 84443; 85025

== ENCOUNTER 2023-07-29 09:03 | Outpatient (AMB) | payer OTHER, MEDICAID, SELFPAY ==
--- NOTE | 2023-07-29 09:17 | MHC.PC.OV ---
Vital Signs 07/29/23 09:19 07/29/23 09:52 Height 5 ft 8 in Weight 200 lb 8 oz BMI 30.5 BP 138/27 L 138/86 Blood Pressure Location Lt brachial Lt brachial Position Sitting Sitting Pulse 85 Pulse Source Pulse Oximeter Pulse Oximetry (%) 96 Oxygen Delivery Method Room Air Intake Visit Reasons: CKD, hyperlipidemia, HTN Intake Note: Patient is here to follow up on CKD, HLD, HTN, IFG. 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 per policy Accompanied by: Self / Same As Patient Allergies No Known Allergies [No Known Allergies*] Allergy (Verified 07/29/23 09:44) Medication List - Last Reconciled 07/29/23 by Bryce Dejesus MD atorvastatin 40 mg PO DAILY cholecalciferol (vitamin D3) 25 mcg PO DAILY dapagliflozin propanediol (Farxiga) 10 mg PO DAILY ferrous sulfate (Feosol) 325 mg PO DAILY lisinopril 20 mg PO DAILY 90 days tizanidine 4 mg PO BEDTIME PRN 30 days Tobacco use date assessed: 07/29/23 Dental Screening Dental Screen Date: 07/29/23 Did you have a dental visit in the last 12 months?: Yes Did you have a dental problem in the last 6 months where you did not have access to dental care?: No Was dental information given to patient?: Patient has dentist HPI CKD, hyperlipidemia, HTN HPI Details Patient comes in today for his follow up visit States that he feels okay but has noticed that both of his hands are swollen when he wakes up in the morning He denies any increased pain in his hands and fingers and states that the swelling gradually subsides in a few minutes He denies any headaches or dizziness Denies any chest pains, no SOB No nausea/vomiting, no abdominal pain No change in bowel habits noted Adds that he threw up some blood back on 07/04/2023 after some dry heaving that lasted for most of the day at the time, and states that he had some lingering pain over the left side of his stomach for a few days after that before the pain gradually subsided States that he did not have any diarrhea at the time and that he did not go to get himself checked out back then Adds that he has been experiencing a lot of muscle cramping and pain at night for a few months now Had his follow up labs done a couple of weeks ago - to discuss his results [facility] Medical History Overweight (BMI 25.0-29.9) Lumbar degenerative disc disease Benign essential hypertension Obesity (BMI 30-39.9) Anxiety Vitamin D deficiency Iron deficiency anemia Chronic kidney disease (CKD), stage III (moderate) Pure hypercholesterolemia Lightheadedness Surgical History Status post biopsy of kidney History of excision of epidermal inclusion cyst Status post excision of lipoma History of eye surgery No history of previous surgery Family History Father Brain aneurysm Mother Acute CVA (cerebrovascular accident) CVD (cardiovascular disease) Brother In good health Sister In good health Sister In good health Social History Housing: House Alcohol intake: never Patient Tobacco Use Status: Never used Tobacco e-Cigarette/Vaping Use: Never Used Second Hand Smoke Exposure: Yes service: No Current occupational status: employed Cognitive needs: No Hearing needs: No Vision needs: No Questionnaire PHQ-9 Over the last 2 weeks, how often have you been bothered by any of the following problems? 1. Little interest or pleasure in doing things: not at all 2. Feeling down, depressed, or hopeless: not at all 3. Trouble falling or staying asleep, or sleeping too much: not at all 4. Feeling tired or having little energy: not at all 5. Poor appetite or overeating: not at all 6. Feeling bad about yourself - or that you are a failure or have let yourself or your family down: not at all 7. Trouble concentrating on things, such as reading the newspaper or watching television: not at all 8. Moving or speaking so slowly that other people could have noticed. Or the opposite - being so fidgety or restless that you have been moving around a lot more than usual: not at all 9. Thoughts that you would be better off or of hurting yourself in some way: not at all Total score: 0 Depression Screening Interpretation: Negative Depression Screening Done: Yes 44889 - PHQ-9 Billing: Yes Source: Developed by Drs. Franco Clayton, Jennifer Gould, Dago Melchor and colleagues, with an educational madisyn from [employer]. Thrive Questionnaire Date Thrive assessed: 07/29/23 I am a: Patient What is your living situation today?: I have a steady place to live Within the past 12 months, did the food you bought not last and you didn't have the money to get more?: Never true Within the past 12 months, did you worry whether your food would run out before you got money to buy more?: Never true Do you have trouble paying for medicines?: No Do you have trouble getting transportation to medical appointments?: No Do you have trouble paying your heating and electricity bill?: No Do you have trouble taking care of your child, family member or friend?: No Do you have trouble with day-to-day activities such as bathing, preparing meals, shopping, managing finances, etc.?: No Are you currently unemployed and looking for a job?: No Are you interested in more education?: No Currently or been in a relationship where the following occur: no concerns reported THRIVE Score: 0 AUDIT C Alcohol Use Questionnaire (AUDIT-C) 1. How often do you have a drink containing alcohol?: Never 3. How often do you have six or more drinks on one occasion?: Never Total Score: 0 Score Reviewed/Action Taken: Yes DAVON-7 AMB Questionnaire DAVON-7 Date DAVON - 7 assessed: 07/29/23 Feeling nervous, anxious, or on edge: 0 = Not at all Not being able to stop or control worryin = Not at all Worrying too much about different things: 0 = Not at all Trouble relaxin = Not at all Being so restless that it is hard to sit still: 0 = Not at all Becoming easily annoyed or irritable: 0 = Not at all Feeling afraid as if something awful might happen: 0 = Not at all Total DAVON-7 score (0-4 normal; 5-9 mild; 10-14 moderate; 15-21 severe): 0 Source: Developed by Jennifer Kimball Kurt Kroenke and colleagues, with an educational madisyn from [employer]. Review of Systems Const Denies chills, Denies fatigue, Denies fever(s) and Denies headache(s) ENT Denies dysphagia, Denies dizziness, Denies otalgia, Denies headache(s), Denies neck pain, Denies odynophagia and Denies sore throat Card Denies chest pain, Denies palpitations and Denies dyspnea Resp Denies chest congestion, Denies cough and Denies dyspnea GI Denies abdominal pain, Denies constipation, Denies dysphagia, Denies heartburn, Denies diarrhea, Denies nausea, Denies odynophagia and Denies vomiting Denies dysuria, Denies nocturia and Denies urinary frequency Musc Details: (+) swelling of both hands in AM - see HPI Reports back pain (over the lower back - on and off), Reports arthralgias (right shoulder, on and off), Reports muscle cramps (diffuse, mostly at night), Denies neck pain and Reports stiffness (at times) Skin/Breast Denies rash Neuro Denies dizziness and Denies headache(s) Endo Denies fatigue and Denies palpitations Physical exam (Primary Care) Vital Signs: Last Vital Signs Pulse 85 07/29/23 09:19 BP 138/86 07/29/23 09:52 Pulse Ox 96 07/29/23 09:19 Oxygen Delivery Method Room Air 07/29/23 09:19 BMI result Body Mass Index 30.5 Tobacco/Smoking Status: Tobacco use Status Tobacco use date assessed 07/29/23 07/29/23 09:26 Patient Tobacco Use Status Never used Tobacco 07/29/23 09:26 e-Cigarette/Vaping Use Never Used 07/29/23 09:26 PHQ-9: PHQ-9 Score PHQ-9: Total score 0 07/29/23 09:52 Depression Screening Interpretation: Negative Thrive Assessment: Date of Thrive Assessment Date Thrive assessed 07/29/23 07/29/23 09:26 Currently or been in a relationship where the following occur: no concerns reported Const General: no acute distress and alert HENMT Ears: TM's normal bilaterally and EAC's normal Throat: Yes posterior oropharynx normal and Yes tonsils normal (no TP congestion noted) Neck Neck: Yes no lymphadenopathy and Yes supple Resp Auscultation: clear to auscultation bilaterally, no rales and no wheezes Cardio Rate: regular rate Rhythm: regular rhythm Heart sounds: no murmurs GI Palpation (GI): Soft to palpation and nontender Auscultation: normal bowel sounds General: Yes no CVA tenderness Back/Spine/Pelvis Back: no CVA tenderness Thoracic/Lumbar Spine: lumbar spinal tenderness (mild) Skin Rashes: no rashes Extrem General: Yes no clubbing, cyanosis or edema Results AMB Hemoglobin A1c AMB Hemoglobin A1c 5.3 % Last Edit by CASSY Miller on 07/29/23 09:32 Results Reviewed Results Reviewed: Laboratory Last Values Hgb A1c (Clinic) 5.3 % (4.0-6.0) 07/29/23 09:17 Laboratory Tests 07/19/23 09:46 WBC 6.4 Hgb 13.2 L Hct 38.8 L Plt Count 337 D Sodium 139 Potassium 4.2 Creatinine 1.57 H Estimated GFR 46 Fasting Glucose 118 H Calcium 8.5 AST 22 ALT 24 Triglycerides 186 H Cholesterol 229 H LDL Cholesterol, Calc 155 H HDL Cholesterol 37 L 25-OH Vitamin D Total 26.7 L TSH 3.30 Ur Specific [place] 1.025 Urine Protein 300 (3+) H Urine Glucose (UA) >=1000 H Urine Blood Small (1+) H Urine Nitrite Negative Ur Leukocyte Esterase Negative Assessment and Plan Assessment & Plan (1) Pure hypercholesterolemia: Code(s): E78.00 - Pure hypercholesterolemia, unspecified Plan: Results of his labs done a couple of weeks ago reviewed and discussed with patient - advised that his cholesterol levels have increased significantly from previous and his LDL cholesterol is now at 155 mg/dl; total cholesterol is at 229 mg/dl Reinforced low cholesterol diet Continue Atorvastatin 40 mg QD - patient states that he takes his Rx daily but admits that he sometimes forgets to take it I suspect that based on the increase in his LDL cholesterol recently, he is forgetting to take it more than he admits and advised that he should try to make it a point to remember taking it EVERYDAY or we may have to go up on his dose if his numbers do not improve over the next few months Will recheck his labs and fasting lipids in 6 months for follow up (2) Chronic kidney disease (CKD), stage III (moderate): 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), 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) Code(s): N18.30 - Chronic kidney disease, stage 3 unspecified Qualifiers: Chronic kidney disease stage 3 subtype: stage 3a (GFR 45-59) Qualified Code(s): N18.31 - Chronic kidney disease, stage 3a Plan: His GFR improved previously, likely due to the addition of Farxiga, BUT his renal function appears to have trended back to where they were previously on his recent labs Advised again that the best way to keep his renal function stable is to keep his blood pressure and blood sugar both tightly controlled We will continue to monitor his renal function closely Follow-up with nephrology as scheduled (3) Benign essential hypertension: Code(s): I10 - Essential (primary) hypertension Plan: Reinforced low sodium diet - goal is systolic BP of at least 120 mm or less due to his CKD Continue Lisinopril 20 mg QD (4) Iron deficiency anemia: Code(s): D50.9 - Iron deficiency anemia, unspecified Qualifiers: Iron deficiency anemia type: unspecified iron deficiency Qualified Code(s): D50.9 - Iron deficiency anemia, unspecified Plan: Stable - continue Feosol 325 mg QD Will continue to monitor his CBC regularly (5) Impaired fasting glucose: Code(s): R73.01 - Impaired fasting glucose Plan: His FBS was elevated at 118 mg/dl on his recent labs done a couple of weeks ago In-office HgbA1c done today is normal at 5.3% - he is reassured that he currently still does not have diabetes Reinforced low calorie/low carb diet, exercise as tolerated (6) Vitamin D deficiency: Code(s): E55.9 - Vitamin D deficiency, unspecified Plan: He is advised that his Vitamin D level has declined by half and he is now again vitamin D deficient Continue Vitamin D3 1000 units daily for now and will recheck his level in 6 months and if his numbers do not improve, will consider doubling up on his current dose (7) Primary osteoarthritis of right shoulder: Code(s): M19.011 - Primary osteoarthritis, right shoulder Plan: X-rays of the right shoulder done last year revealed (+) mild OA changes Continue OTC Tylenol PRN for pain as NSAIDs are contraindicated for him due to his CKD Will consider referring him to orthopedics if his shoulder pain gets worse (8) Lumbar degenerative disc disease: Code(s): M51.36 - Other intervertebral disc degeneration, lumbar region Plan: X-rays of the lumbar spine done back in 2010 showed mild to moderate degenerative disc disease at L5-S1 Lumbar spine x-rays repeated back in March 2021 revealed (+) L5-S1 degenerative disc disease that has progressed slightly since 04/10/2010, with no significant change in 6 mm of degenerative retrolisthesis Reinforced activity and weight-lifting restrictions Will recommend physical therapy if his low back pain continues to bother him Continue Tizanidine 4 mg Q HS PRN (9) Hand edema: Code(s): R60.0 - Localized edema Plan: Will send him for some additional labs JESSICA for further evaluation Suspect that this may have something to do with the recent decline in his renal function (10) Nocturnal leg cramps: Code(s): G47.62 - Sleep related leg cramps Plan: Advised that this is most likely related to his statin Rx and have offered to switch him out to a different statin but patient declined at this time as he is concerned about his rising cholesterol level States that he will call if his symptoms become unbearable Have advised him that his Tizandine 4 mg Q HS should help him with this Will have him get some labs done to check his CPK and magnesium level as well for further evaluation (11) Anxiety: Code(s): F41.9 - Anxiety disorder, unspecified Plan: Was on Hydroxyzine 25 mg 1 to 2 times a day as needed but has not needed this for a while Patient instructed to call if he feels his anxiety is starting to bother him again at any time (12) Obesity (BMI 30-39.9): Code(s): E66.9 - Obesity, unspecified Plan: Reinforced diet/exercise as tolerated/lose weight - he has gained some weight since his last visit Plan Follow up in 6 months Orders: Orders AMB Hemoglobin A1c Today R73.01 - Impaired fasting glucose AGUSTIN Reflex Titer and Pattern Today M25.50 - Pain in unspecified joint, R60.0 - Localized edema Rheumatoid Factor Today M25.50 - Pain in unspecified joint, R60.0 - Localized edema Magnesium Today E83.42 - Hypomagnesemia, G47.62 - Sleep related leg cramps, R60.0 - Localized edema Comprehensive [place]. Panel Fast 6 Months E78.00 - Pure hypercholesterolemia, unspecified UA CC w/rflx Micro + Cult 6 Months R30.0 - Dysuria Vitamin D 25-OH Total 6 Months E55.9 - Vitamin D deficiency, unspecified C Reactive Protein Today M25.50 - Pain in unspecified joint, R60.0 - Localized edema B Type Natriuretic Peptide Today M25.50 - Pain in unspecified joint, R60.0 - Localized edema Erythrocyte Sedimentation Rate Today M25.50 - Pain in unspecified joint, R60.0 - Localized edema CK, Total+Isoenzymes, Serum Today G47.62 - Sleep related leg cramps, R60.0 - Localized edema Complete Blood Count Auto Diff 6 Months D64.9 - Anemia, unspecified Lipid Panel 6 Months E78.00 - Pure hypercholesterolemia, unspecified TSH reflex Free T4 6 Months E78.00 - Pure hypercholesterolemia, unspecified Microalbumin, Random (w Creat) 6 Months E11.9 - Type 2 diabetes mellitus without complications Vitamin B12 and Folate 6 Months E53.8 - Deficiency of other specified B group vitamins Hemoglobin A1c 6 Months E11.9 - Type 2 diabetes mellitus without complications Medications: New tizanidine 4 mg PO BEDTIME PRN 30 tabs 5RF muscle spasms Coding Level of Care Code Est Pt Level 4 (38288) Diagnoses Pure hypercholesterolemia E78.00 Stage 3a chronic kidney disease N18.31 Chronic kidney disease stage 3 subtype: stage 3a (GFR 45-59) Benign essential hypertension I10 Iron deficiency anemia, unspecified iron deficiency anemia type D50.9 Iron deficiency anemia type: unspecified iron deficiency Impaired fasting glucose R73.01 Vitamin D deficiency E55.9 Primary osteoarthritis of right shoulder M19.011 Lumbar degenerative disc disease M51.36 Hand edema R60.0 Nocturnal leg cramps G47.62 Anxiety F41.9 Obesity (BMI 30-39.9) E66.9
[2023-07-29 09:19] VITALS: BP 138/27; PULSE 85; O2SAT 96; BMI 30.5
[2023-07-29 09:52] VITALS: BP 138/86
== END 2023-07-29 10:08 | disposition home or self-care (01) ==
PROVIDERS: PCP Internal Medicine; Visit Provider Internal Medicine
DX: E78.00 Pure hypercholesterolemia, unspecified (principal); I12.9 Hypertensive chronic kidney disease with stage 1 through stage 4 chronic kidney disease, or unspecified chronic kidney disease; N18.31 Chronic kidney disease, stage 3a; D50.9 Iron deficiency anemia, unspecified; R73.01 Impaired fasting glucose; E55.9 Vitamin D deficiency, unspecified; M19.011 Primary osteoarthritis, right shoulder; M51.36 Other intervertebral disc degeneration, lumbar region; R60.0 Localized edema; G47.62 Sleep related leg cramps; F41.9 Anxiety disorder, unspecified; E66.9 Obesity, unspecified
CPT/HCPCS: 83036; 99214

== ENCOUNTER 2023-07-29 10:36 | Outpatient (REF) | payer OTHER, SELFPAY ==
[2023-07-29 12:13] LABS: B Type Natriuretic Peptide 43 pg/mL (<100)
[2023-07-29 12:22] LABS: Rheumatoid Factor < 13.0 IU/mL (<15.0)
[2023-07-29 12:23] LABS: C Reactive Protein < 0.10 mg/dL (< or = 0.50); Magnesium 2.2 mg/dL (1.6-2.6)
[2023-07-29 12:45] LABS: Erythrocyte Sedimentation Rate 42 MM/HR (0-15)
[2023-07-31 11:59] LABS: Anti Nuclear Antibody Screen NEGATIVE (NEGATIVE)
[2023-08-02 14:04] LABS: CK-BB None Detected (None Detected); CK-MB 0 % (<5); CK-MM 100 % (95-100); Creatine Kinase,Total,Serum 298 U/L (44-196)
== END 2023-07-29 10:37 | disposition home or self-care (01) ==
LOC: HO.10HDL 10:36
PROVIDERS: Visit Provider Internal Medicine
DX: R60.0 Localized edema (principal); M25.50 Pain in unspecified joint; G47.62 Sleep related leg cramps; E83.42 Hypomagnesemia
CPT/HCPCS: 36415; 82552; 83735; 83880; 85652; 86038; 86140; 86431

== ENCOUNTER 2024-01-27 09:06 | Outpatient (REF) | payer OTHER, SELFPAY ==
[2024-01-27 10:42] LABS: MANUAL DIFF FLAG NO
[2024-01-27 10:48] LABS: Basophils Absolute Auto 0.1 X10*3/uL (0.0-0.2); Basophils Percent Auto 0.9 % (0-2); Eosinophils Absolute Auto 0.2 X10*3/uL (0.0-0.4); Eosinophils Percent Auto 3.5 % (0-4); Hematocrit 37.9 % (42.0-52.0); Hemoglobin 12.6 g/dl (14.0-18.0); Imm Gran Abs Auto 0.03 X10*3/uL (0.00-0.03); Imm Gran Pct Auto 0.5 % (0.0-0.4); Lymphocytes Absolute Auto 1.6 X10*3/uL (1.2-4.9); Mean Corpuscular HGB Conc 33.2 g/dl (31.0-36.0); Mean Corpuscular Hemoglobin 26.5 pg (27.0-33.0); Mean Corpuscular Volume 79.8 fL (80.0-98.0); Monocytes Absolute Auto 0.6 X10*3/uL (0.1-1.2); Monocytes Percent Auto 9.2 % (2-11); Neutrophils Percent Auto 61.9 % (45-73); Platelet Count 276 X10*3/uL (160-400); Red Blood Count 4.75 X10*6/uL (4.60-5.80); Red Cell Distribution Width 12.7 % (11.0-16.0); White Blood Count 6.5 X10*3/uL (4.8-10.8)
[2024-01-27 11:17] LABS: Estimated Average Glucose 117 mg/dL; Hemoglobin A1C 126.6787 umol/L; Hemoglobin A1c % 5.7 % (<6.0); Total Hemoglobin (HGBA1C) 3302.6637 umol/L
[2024-01-27 11:27] LABS: Alanine Aminotransferase 15 U/L (0-40); Albumin Level 2.9 g/dL (3.5-5.0); Alkaline Phosphatase 48 U/L (39-117); Anion Gap 8 (12-20); Aspartate Amino Transferase 21 U/L (5-37); Bilirubin Total 0.5 mg/dL (0.0-1.0); Blood Urea Nitrogen 21 mg/dL (9-16); Calcium 8.6 mg/dL (8.4-10.2); Carbon Dioxide 27 mmol/L (22-29); Chloride 109 mmol/L (96-108); Cholesterol 216 mg/dL (<200); Estimated Glomerular Filt Rate 47; Glucose Fasting 118 mg/dL (60-99); HDL Cholesterol 38 mg/dL (>40); LDL Cholesterol Calculated 150 mg/dL (<100); Sodium 140 mmol/L (135-145); Total Protein 5.7 g/dL (6.5-8.0); Triglycerides 142 mg/dL (<150)
[2024-01-27 11:52] LABS: Folate 12.7 ng/mL (> or = 4.0); Vitamin B12 328 pg/mL (200-900)
[2024-01-27 11:53] LABS: TSH reflex Free T4 3.68 uIU/mL (0.32-4.0); Vitamin D 25-OH Total 33.3 ng/mL (>30)
[2024-01-27 11:55] LABS: Appearance Urine Clear; Color Urine Yellow; Glucose Urine UA >=1000 mg/dL (Negative); Leukocyte Esterase Urine Negative (Negative); Nitrite Urine Negative (Negative); PH 5.5 (5.0-9.0); Specific Gravity - Urine >= 1.030 (1.005-1.025); UMIC TRIGGER UACC YES; Urine Blood Trace (Negative); Urine Ketones Negative (Negative); Urine Protein 300 (3+) mg/dL (Neg-Trace)
[2024-01-27 12:16] LABS: Bacteria Urine None Seen (None Seen); Granular Casts Urine Present; RBC Urine 0-2 /HPF (0-2); Squamous Epithelial Cell Urine 0-2 /HPF (0-2); WBC Urine 0-5 /HPF (0-5)
[2024-01-27 12:58] LABS: Creatinine Urine 114.23 mg/dL
[2024-01-27 13:07] LABS: Microalbum/Creatinine Ratio Ur 1750.8 ug/mg cr (<30); Microalbumin Urine > 2000.0 mg/L
== END 2024-01-27 09:07 | disposition home or self-care (01) ==
LOC: HO.10HDL 09:06
PROVIDERS: Visit Provider Internal Medicine
DX: D64.9 Anemia, unspecified (principal); E78.00 Pure hypercholesterolemia, unspecified; E11.9 Type 2 diabetes mellitus without complications; E55.9 Vitamin D deficiency, unspecified; E53.8 Deficiency of other specified B group vitamins
CPT/HCPCS: 36415; 80053; 80061; 81001; 82043; 82306; 82570; 82607; 82746; 83036; 84443; 85025

== ENCOUNTER 2024-01-29 08:49 | Outpatient (AMB) | payer OTHER, SELFPAY ==
[2024-01-29 08:50] VITALS: BP 130/86; PULSE 81; O2SAT 96; BMI 29.1
--- NOTE | 2024-01-29 08:50 | A.OFFPC_ITS ---
Vital Signs 01/29/24 08:50 Height 5 ft 8 in Weight 191 lb 8 oz BMI 29.1 BP 130/86 Blood Pressure Location Lt brachial Position Sitting Pulse 81 Pulse Source Pulse Oximeter Pulse Oximetry (%) 96 Oxygen Delivery Method Room Air Intake Visit Reasons: HTN, hyperlipidemia, CKD Investigation Specialist Required: No Accompanied by: Self / Same As Patient Allergies No Known Allergies [No Known Allergies*] Allergy (Verified 01/29/24 09:10) Medication List - Last Reconciled 01/29/24 by Bryce Dejesus MD atorvastatin 40 mg PO DAILY cholecalciferol (vitamin D3) 25 mcg PO DAILY dapagliflozin propanediol (Farxiga) 10 mg PO DAILY ferrous sulfate (Feosol) 325 mg PO DAILY lisinopril 20 mg PO DAILY 90 days tizanidine 4 mg PO BEDTIME PRN 30 days tizanidine 4 mg PO BEDTIME PRN Tobacco use date assessed: 01/29/24 Dental Screening Dental Screen Date: 01/29/24 Did you have a dental visit in the last 12 months?: No Did you have a dental problem in the last 6 months where you did not have access to dental care?: No Was dental information given to patient?: Patient has dentist HPI HTN, hyperlipidemia, CKD HPI Details Patient comes in today for his follow up visit States that he feels okay but he has noticed a bulge over his right inguinal area for the past few months (since ) Notes (+) pain at times over the bulge, especially when he strains a lot or with heavy lifting or exertion - is concerned that he may have a hernia States that he does a lot of heavy lifting at work and sometimes has pain over there when he is at work He denies any headaches or dizziness Denies any chest pains, no SOB No nausea/vomiting, no abdominal pain No change in bowel habits noted and states that he has no acute urinary symptoms He had his follow up labs done a couple of days ago - to discuss his results Would also like to get his flu shot today [facility] Medical History Overweight (BMI 25.0-29.9) Lumbar degenerative disc disease Benign essential hypertension Obesity (BMI 30-39.9) Anxiety Vitamin D deficiency Iron deficiency anemia Chronic kidney disease (CKD), stage III (moderate) Pure hypercholesterolemia Lightheadedness Surgical History Status post biopsy of kidney History of excision of epidermal inclusion cyst Status post excision of lipoma History of eye surgery No history of previous surgery Family History Father Brain aneurysm Mother Acute CVA (cerebrovascular accident) CVD (cardiovascular disease) Brother In good health Sister In good health Sister In good health Social History Housing: House Alcohol intake: never Patient Tobacco Use Status: Never used Tobacco e-Cigarette/Vaping Use: Never Used Second Hand Smoke Exposure: Yes service: No Current occupational status: employed Cognitive needs: No Hearing needs: No Vision needs: No Questionnaire PHQ-9 Over the last 2 weeks, how often have you been bothered by any of the following problems? 1. Little interest or pleasure in doing things: not at all 2. Feeling down, depressed, or hopeless: not at all 3. Trouble falling or staying asleep, or sleeping too much: not at all 4. Feeling tired or having little energy: not at all 5. Poor appetite or overeating: not at all 6. Feeling bad about yourself - or that you are a failure or have let yourself or your family down: not at all 7. Trouble concentrating on things, such as reading the newspaper or watching television: not at all 8. Moving or speaking so slowly that other people could have noticed. Or the opposite - being so fidgety or restless that you have been moving around a lot more than usual: not at all 9. Thoughts that you would be better off or of hurting yourself in some way: not at all Total score: 0 Depression Screening Interpretation: Negative Depression Screening Done: Yes 22660 - PHQ-9 Billing: Yes Source: Developed by Drs. Franco Clayton, Jennifer Gould, Dago Melchor and colleagues, with an educational madisyn from [employer]. Thrive Questionnaire Date Thrive assessed: 01/29/24 I am a: Patient What is your living situation today?: I have a steady place to live Within the past 12 months, did the food you bought not last and you didn't have the money to get more?: Never true Within the past 12 months, did you worry whether your food would run out before you got money to buy more?: Never true Do you have trouble paying for medicines?: No Do you have trouble getting transportation to medical appointments?: No Do you have trouble paying your heating and electricity bill?: No Do you have trouble taking care of your child, family member or friend?: No Do you have trouble with day-to-day activities such as bathing, preparing meals, shopping, managing finances, etc.?: No Are you currently unemployed and looking for a job?: No Are you interested in more education?: No Please select the resources that you would like help with: None Currently or been in a relationship where the following occur: No concerns reported THRIVE Score: 0 AUDIT C Alcohol Use Questionnaire (AUDIT-C) 1. How often do you have a drink containing alcohol?: Never 3. How often do you have six or more drinks on one occasion?: Never Total Score: 0 Score Reviewed/Action Taken: Yes DAVON-7 AMB Questionnaire DAVON-7 Date DAVON - 7 assessed: 01/29/24 Feeling nervous, anxious, or on edge: 0 = Not at all Not being able to stop or control worryin = Not at all Worrying too much about different things: 0 = Not at all Trouble relaxin = Not at all Being so restless that it is hard to sit still: 0 = Not at all Becoming easily annoyed or irritable: 0 = Not at all Feeling afraid as if something awful might happen: 0 = Not at all Total DAVON-7 score (0-4 normal; 5-9 mild; 10-14 moderate; 15-21 severe): 0 Source: Developed by Drs. Franco Clayton, Jennifer Gould, Dago Melchor and colleagues, with an educational madisyn from [employer]. Review of Systems Const Denies chills, Denies fatigue, Denies fever(s) and Denies headache(s) ENT Denies dysphagia, Denies dizziness, Denies otalgia, Denies headache(s), Denies neck pain, Denies odynophagia and Denies sore throat Card Denies chest pain, Denies palpitations and Denies dyspnea Resp Denies chest congestion, Denies cough and Denies dyspnea GI Details: (+) noticeable bulge over his right inguinal area x months Denies abdominal pain, Denies constipation, Denies dysphagia, Denies heartburn, Denies diarrhea, Denies nausea, Denies odynophagia and Denies vomiting Denies dysuria, Denies nocturia and Denies urinary frequency Musc Details: (+) swelling of both hands in AM - see HPI Reports back pain (over the lower back - on and off), Reports arthralgias (right shoulder, on and off), Reports muscle cramps (diffuse, mostly at night), Denies neck pain and Reports stiffness (at times) Skin/Breast Denies rash Neuro Denies dizziness and Denies headache(s) Endo Denies fatigue and Denies palpitations Physical exam (Primary Care) Vital Signs: Last Vital Signs Pulse 81 01/29/24 08:50 BP 130/86 01/29/24 08:50 Pulse Ox 96 01/29/24 08:50 Oxygen Delivery Method Room Air 01/29/24 08:50 BMI result Body Mass Index 29.1 Tobacco/Smoking Status: Tobacco use Status Tobacco use date assessed 01/29/24 01/29/24 08:52 Patient Tobacco Use Status Never used Tobacco 01/29/24 08:52 e-Cigarette/Vaping Use Never Used 01/29/24 08:52 PHQ-9: PHQ-9 Score PHQ-9: Total score 0 01/29/24 08:52 Depression Screening Interpretation: Negative Thrive Assessment: Date of Thrive Assessment Date Thrive assessed 01/29/24 01/29/24 08:52 Currently or been in a relationship where the following occur: No concerns reported Const General: no acute distress and alert HENMT Ears: TM's normal bilaterally and EAC's normal Throat: Yes posterior oropharynx normal and Yes tonsils normal (no TP congestion noted) Neck Neck: Yes no lymphadenopathy and Yes supple Resp Auscultation: clear to auscultation bilaterally, no rales and no wheezes Cardio Rate: regular rate Rhythm: regular rhythm Heart sounds: no murmurs GI Other: (+) palpable hernia over the right inguinal/suprapubic area - this is non-tender on palpation Palpation (GI): Soft to palpation and nontender Auscultation: normal bowel sounds General: Yes no CVA tenderness Back/Spine/Pelvis Back: no CVA tenderness Thoracic/Lumbar Spine: lumbar spinal tenderness (mild) Skin Rashes: no rashes Extrem General: Yes no clubbing, cyanosis or edema Office Procedures Flu Questionnaire Does the patient have a severe egg allergy?: No Does the patient have severe life threatening allergies?: No Does the patient have a fever or illness today?: No Has the patient ever had Guillain-[place] Syndrome?: No Has the patient ever had any past reaction to a flu shot?: No Immunizations Fluarix Triv [id number] (PF) 45 mcg (15 mcg x 3)/0.5 mL IM syringe Performing Provider: Bryce Dejesus MD [facility] Administered by: CASSY Rico on 01/29/24 08:59 Dose Route Admin Location Dispensed Lot Number Expiration Date NDC Washer Operator 0.5 mL IM Right Deltoid 0.5 mL [id number] 10/05/24 75316-405-20 [facility] VIS Given Date VIS Provided VIS Publication Date 01/29/24 Single Vaccine 20 Eligibility Eligibility Date Funding Source Not [facility] Eligible 01/29/24 Private Results Reviewed Results Reviewed: Laboratory Tests 07/29/23 01/27/24 10:40 09:12 WBC 6.5 Hgb 12.6 L Hct 37.9 L Plt Count 276 ESR 42 H Sodium 140 Potassium 4.0 Creatinine 1.53 H Estimated GFR 47 Fasting Glucose 118 H Hemoglobin A1c % 5.7 Calcium 8.6 AST 21 ALT 15 Triglycerides 142 Cholesterol 216 H LDL Cholesterol, Calc 150 H HDL Cholesterol 38 L Vitamin B12 328 25-OH Vitamin D Total 33.3 TSH 3.68 Ur Specific [place] >= 1.030 H Urine Protein 300 (3+) H Urine Glucose (UA) >=1000 H Urine Blood Trace H Urine Nitrite Negative Ur Leukocyte Esterase Negative Microalb/Creat Ratio 1750.8 H Coding Level of Care Code Est Pt Level 4 (60401) Diagnoses Pure hypercholesterolemia E78.00 Stage 3a chronic kidney disease N18.31 Chronic kidney disease stage 3 subtype: stage 3a (GFR 45-59) Benign essential hypertension I10 Iron deficiency anemia, unspecified iron deficiency anemia type D50.9 Iron deficiency anemia type: unspecified iron deficiency Impaired fasting glucose R73.01 Vitamin D deficiency E55.9 Primary osteoarthritis of right shoulder M19.011 Degeneration of intervertebral disc of lumbar region with discogenic back pain M51.360 Disc-related pain type: discogenic back pain only Nocturnal leg cramps G47.62 Right inguinal hernia K40.90 Anxiety F41.9 Overweight (BMI 25.0-29.9) E66.3 Assessment & Plan Assessment & Plan (1) Pure hypercholesterolemia: Code(s): E78.00 - Pure hypercholesterolemia, unspecified Category: Medical Plan: Results of his labs done a couple of weeks ago reviewed and discussed with patient - advised that his cholesterol levels have decreased only slightly from previous and his LDL cholesterol is still high at 150 mg/dl and total cholesterol is still at 216 mg/dl Reinforced low cholesterol diet Will go ahead and increase his Atorvastatin to 80 mg QD Will recheck his labs and fasting lipids in 6 months for follow up (2) Chronic kidney disease (CKD), stage III (moderate): 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), 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) Code(s): N18.30 - Chronic kidney disease, stage 3 unspecified Category: Medical Qualifiers: Chronic kidney disease stage 3 subtype: stage 3a (GFR 45-59) Qualified Code(s): N18.31 - Chronic kidney disease, stage 3a Plan: His renal function appears to be stable on his recent labs Continue Farxiga 10 mg QD He is advised again that the best way to keep his renal function stable is to keep his blood pressure and blood sugar both tightly controlled We will continue to monitor his renal function closely Follow-up with nephrology as scheduled (3) Benign essential hypertension: Code(s): I10 - Essential (primary) hypertension Category: Medical Plan: Reinforced low sodium diet - goal is systolic BP of at least 120 mm or less due to his CKD Continue Lisinopril 20 mg QD (4) Iron deficiency anemia: Code(s): D50.9 - Iron deficiency anemia, unspecified Category: Medical Qualifiers: Iron deficiency anemia type: unspecified iron deficiency Qualified Code(s): D50.9 - Iron deficiency anemia, unspecified Plan: Stable - this is likely due to a combination of iron deficiency and chronic kidney disease Continue Feosol 325 mg QD Will continue to monitor his CBC regularly (5) Impaired fasting glucose: Code(s): R73.01 - Impaired fasting glucose Category: Medical Plan: His FBS was up at 118 mg/dl but his HgbA1c was still normal at 5.7% on his labs done a couple of days ago; in-office HgbA1c was previously normal at 5.3% back in the spring of this year Reinforced low calorie/low carb diet, exercise as tolerated (6) Vitamin D deficiency: Code(s): E55.9 - Vitamin D deficiency, unspecified Category: Medical Plan: Continue Vitamin D3 1000 units daily (7) Primary osteoarthritis of right shoulder: Code(s): M19.011 - Primary osteoarthritis, right shoulder Category: Medical Plan: X-rays of the right shoulder done last year revealed (+) mild OA changes Continue OTC Tylenol PRN for pain as NSAIDs are contraindicated for him due to his CKD Will consider referring him to orthopedics if his shoulder pain gets worse (8) Lumbar degenerative disc disease: Code(s): M51.36 - Other intervertebral disc degeneration, lumbar region Category: Medical Qualifiers: Disc-related pain type: discogenic back pain only Qualified Code(s): M51.360 - Other intervertebral disc degeneration, lumbar region with discogenic back pain only Plan: Reinforced activity and weight-lifting restrictions - he admits to doing a lot of heavy lifting at work lately X-rays of the lumbar spine done back in 2010 showed mild to moderate degenerative disc disease at L5-S1 Lumbar spine x-rays repeated back in March 2021 revealed (+) L5-S1 degenerative disc disease that has progressed slightly since 04/10/2010, with no significant change in 6 mm of degenerative retrolisthesis Will recommend physical therapy if his low back pain continues to bother him or if it gets worse Continue Tizanidine 4 mg Q HS PRN (9) Nocturnal leg cramps: Code(s): G47.62 - Sleep related leg cramps Category: Medical Plan: Symptoms have been better lately Continue Tizanidine 4 mg Q HS PRN (10) Right inguinal hernia: Code(s): K40.90 - Unilateral inguinal hernia, without obstruction or gangrene, not specified as recurrent Category: Medical Plan: Will send him for abdominal and pelvic US for further evaluation If US shows (+) hernia, will then refer him to surgery for further management (11) Anxiety: Code(s): F41.9 - Anxiety disorder, unspecified Category: Medical Plan: He was on Hydroxyzine 25 mg 1 to 2 times a day as needed previously but he has not needed to take this for a while now Patient is instructed to call if he feels his anxiety is starting to bother him again at any time (12) Overweight (BMI 25.0-29.9): Code(s): E66.3 - Overweight Category: Medical Plan: Reinforced diet/exercise as tolerated/lose weight Plan As requested, flu vaccine given to the patient today To return in 6 months for his next annual physical examination Orders: Orders US pelvic complete Today K40.90 - Unilateral inguinal hernia, without obst ruction or gangrene, not specified as recurrent Complete Blood Count Auto Diff 6 Months D64.9 - Anemia, unspecified Comprehensive [place]. Panel Fast 6 Months E78.00 - Pure hypercholesterolemia, unspecified Vitamin D 25-OH Total 6 Months E55.9 - Vitamin D deficiency, unspecified Hemoglobin A1c 6 Months R73.01 - Impaired fasting glucose Microalbumin, Random (w Creat) 6 Months E11.9 - Type 2 diabetes mellitus without complications Prostate Specific Antigen 6 Months R35.1 - Nocturia, Z00.00 - Encounter for general adult medical examination without abnormal findings Influenza [id number] Immunization Today Z23 - Encounter for immunization US abdomen complete Today K40.90 - Unilateral inguinal hernia, without obstruction or gangrene, not specified as recurrent Lipid Panel 6 Months E78.00 - Pure hypercholesterolemia, unspecified TSH reflex Free T4 6 Months E78.00 - Pure hypercholesterolemia, unspecified UA CC w/rflx Micro + Cult 6 Months R30.0 - Dysuria Medications: Changed From atorvastatin 40 mg PO DAILY 90 tabs 1RF To atorvastatin 80 mg PO DAILY 90 days 90 tabs 1RF
== END 2024-01-29 09:38 | disposition home or self-care (01) ==
PROVIDERS: PCP Internal Medicine; Visit Provider Internal Medicine
DX: E78.00 Pure hypercholesterolemia, unspecified (principal); N18.31 Chronic kidney disease, stage 3a; I10 Essential (primary) hypertension; D50.9 Iron deficiency anemia, unspecified; R73.01 Impaired fasting glucose; E55.9 Vitamin D deficiency, unspecified; M19.011 Primary osteoarthritis, right shoulder; M51.360 Other intervertebral disc degeneration, lumbar region with discogenic back pain only; G47.62 Sleep related leg cramps; K40.90 Unilateral inguinal hernia, without obstruction or gangrene, not specified as recurrent; F41.9 Anxiety disorder, unspecified; E66.3 Overweight; Z23 Encounter for immunization

== ENCOUNTER → 2024-01-29 08:49 | Outpatient (BNVA) | payer OTHER, SELFPAY | PROVIDERS: PCP Internal Medicine; Visit Provider Internal Medicine | DX: E78.00 Pure hypercholesterolemia, unspecified (principal); I12.9 Hypertensive chronic kidney disease with stage 1 through stage 4 chronic kidney disease, or unspecified chronic kidney disease; N18.31 Chronic kidney disease, stage 3a; D50.9 Iron deficiency anemia, unspecified; Z23 Encounter for immunization; R73.01 Impaired fasting glucose; E55.9 Vitamin D deficiency, unspecified; M19.011 Primary osteoarthritis, right shoulder; M51.360 Other intervertebral disc degeneration, lumbar region with discogenic back pain only; G47.62 Sleep related leg cramps; K40.90 Unilateral inguinal hernia, without obstruction or gangrene, not specified as recurrent; F41.9 Anxiety disorder, unspecified; E66.3 Overweight; Z68.29 Body mass index [BMI] 29.0-29.9, adult; Z79.899 Other long term (current) drug therapy | CPT/HCPCS: 90471; 90656; 96127 ==

== ENCOUNTER 2024-02-13 13:26 | Outpatient (REF) | payer OTHER, SELFPAY ==
--- NOTE | ~2024-02-13 | US_ITS ---
EXAMINATION: US PELVIS, LIMITED/FOLLOW UP CLINICAL INFORMATION: Right inguinal hernia. COMPARISON: None available. TECHNIQUE: High frequency linear ultrasound transducer was used to examine the area of clinical concern. FINDINGS: A right inguinal hernia is seen measuring 1.6 cm. It is difficult to tell whether the hernia contains only fat or possibly a small amount of bowel. US/US pelvic limited IMPRESSION: Right inguinal hernia. Electronically signed by: Eduardo Dykes MD 02/19/2024 12:41 PM [facility]
== END 2024-02-13 13:27 | disposition home or self-care (01) ==
LOC: HO.US 13:26
PROVIDERS: PCP Internal Medicine; Visit Provider Internal Medicine
DX: K40.90 Unilateral inguinal hernia, without obstruction or gangrene, not specified as recurrent (principal)
CPT/HCPCS: 76857

== ENCOUNTER 2024-02-26 07:34 | Outpatient (AMB) | payer OTHER, SELFPAY ==
--- NOTE | 2024-02-26 07:38 | MHC.OFFVIS ---
Vital Signs 02/26/24 07:46 Height 5 ft 8 in Weight 191 lb BMI 29.0 BP 171/87 H Blood Pressure Location Rt brachial Position Sitting Pulse 88 Intake Visit Reasons: Unilateral hernia Intake Note: Patient referred by pcp Dr. Dejesus for unilateral hernia. First noticed . Denies trauma, heavy lifting. Patient c/o: starting to become bothersome. Cork Insulator Required: No Accompanied by: Self / Same As Patient Allergies No Known Allergies [No Known Allergies*] Allergy (Verified 02/26/24 07:44) HPI Comments Details: Patient presents for evaluation of symptomatic right inguinal hernia. He has had this roughly 1 year's time. Incentive using incised, and, symptomatic. He would like to have repaired. He does moderate to heavy lifting at his place of employment. Patient has no other GI issues or complaints. Otherwise tolerating a diet. Has regular bowel habits. Chart was reviewed and patient evaluated [facility] Medical History Overweight (BMI 25.0-29.9) Lumbar degenerative disc disease Benign essential hypertension Obesity (BMI 30-39.9) Anxiety Vitamin D deficiency Iron deficiency anemia Chronic kidney disease (CKD), stage III (moderate) Pure hypercholesterolemia Lightheadedness Surgical History Status post biopsy of kidney History of excision of epidermal inclusion cyst Status post excision of lipoma History of eye surgery No history of previous surgery Family History Father Brain aneurysm Mother Acute CVA (cerebrovascular accident) CVD (cardiovascular disease) Brother In good health Sister In good health Sister In good health Social History Housing: House Alcohol intake: never Patient Tobacco Use Status: Never used Tobacco e-Cigarette/Vaping Use: Never Used Second Hand Smoke Exposure: Yes service: No Current occupational status: employed Cognitive needs: No Hearing needs: No Vision needs: No Physical Exam Vital Signs: Last Vital Signs Pulse 88 02/26/24 07:46 BP 171/87 H 02/26/24 07:46 BMI result Body Mass Index 29.0 Chest Other: Chest breath sounds bilaterally, HS 1 in 2 GI Other: Abdomen is soft, benign. Patient was examined both supine and standing with Valsalva. Left groin negative. Genitalia within normal limits. Moderately sized right inguinal hernia reducible Assessment & Plan Assessment & Plan (1) Right inguinal hernia: Code(s): K40.90 - Unilateral inguinal hernia, without obstruction or gangrene, not specified as recurrent Category: Surgical Plan Risks, benefits, alternatives of open right inguinal hernia repair with mesh were reviewed with the patient and included but not limited to bleeding, infection, recurrence, numbness, pain, scarring the patient wished to proceed. All questions answered. Arrangements were made for this. Coding Level of Care Code New Pt Level 5 (72884) Diagnoses Right inguinal hernia K40.90
[2024-02-26 07:46] VITALS: BP 171/87; PULSE 88; BMI 29.0
== END 2024-02-26 08:01 | disposition home or self-care (01) ==
PROVIDERS: PCP Internal Medicine; Referring Provider Internal Medicine; Visit Provider Surgery
DX: K40.90 Unilateral inguinal hernia, without obstruction or gangrene, not specified as recurrent (principal)
CPT/HCPCS: 99204

== ENCOUNTER → 2024-03-09 10:35 | Outpatient (BNV) | payer OTHER, SELFPAY | PROVIDERS: PCP Internal Medicine; Visit Provider Internal Medicine Cardiovascular Disease | DX: Z01.810 Encounter for preprocedural cardiovascular examination (principal) | CPT/HCPCS: 93010 ==

== ENCOUNTER 2024-03-13 10:44 | Day surgery (SDC) | payer OTHER, SELFPAY ==
--- NOTE | 2024-03-09 | ECG_ITS ---
Test Reason : PRE OP Blood Pressure : / mmHG Vent. Rate : 094 BPM Atrial Rate : 094 BPM P-R Int : 122 ms QRS Dur : 082 ms QT Int : 354 ms P-R-T Axes : 057 035 052 degrees QTc Int : 442 ms Normal sinus rhythm Minimal voltage criteria for LVH, may be normal variant ( Sokolow-Grayson ) Borderline ECG No previous ECGs available Referred By: Odessa Gilmore Electronically Signed By:Juanpablo Pool
[2024-03-09 09:58] VITALS: BMI 29.6
[2024-03-09 10:02] VITALS: BP 170/93; PULSE 105; RESP 18; O2SAT 96
[2024-03-13] VITALS (12 sets, daily range): BP systolic 130–153; BP diastolic 71–82; PULSE 75–106; RESP 16–20; TEMP 36.3–36.4; O2SAT 94–99; BMI 29.9
[2024-03-13] MEDS: Lactated Ringers 1,000 ML 100 ML IVCONT (11:13)
--- NOTE | 2024-03-13 12:13 | MHC.SHP ---
Pre-Procedural Eval Section A - 24 Hr Update-Section A only Date of Service: 03/13/24 The patient is an INPATIENT: No Changes since office visit: No Cold of Flu in the past 2 weeks, No New Medical Problems, No Changes in Medication and No Patient answered all questions Section B - Complete if H&P > 30 days Chief Complaint: Unilateral inguinal hernia, without obstruction or Allergies: Allergies Allergy/AdvReac Type Severity Reaction Status Date / Time No Known Allergies Allergy Verified 02/26/24 07:44 [No Known Allergies*] Review of Systems Sugical H&P ROS: Negative: Constitution, Cardiovascular, Respiratory, Neurological, Psychiatric, Hem-Onc, Allergic/Immunologic, Gastrointestinal, Genitourinary, Musculoskeletal, Integumentary, Endocrine and Eyes/Ears/Nose/Throat Exam Surgical H&P Exam: Normal: HEENT, Normal: Heart, Normal: Lungs, Normal: Extremities, Normal: Abdomen, Normal: Skin and Normal: Neurological Plan I have reviewed the history and physical and performed a pertinent physical examination on my patient. No changes have occurred unless specified. Time Spent With Patient Time: Total time managing care of this patient today ____ minutes.
--- NOTE | 2024-03-13 12:50 | P.CONAN_ITS ---
Documented by User: Odessa Gilmore NP 03/12/24 10:44 HPI - Anesthesia Eval Consult details Narrative: 58yo M for Open Hernia Inguinal Reducible repair with mesh, 03/13/24 No recent illness No CP/SOB with minimal activity r/t hernia Follows renal for CKD/idiopathic membranous nephropathy - creat at baseline Farxiga for CKD, no DM BP elevated at PAT, but ok at PCP 01/2024 and renal 10/2023. Will bring log DOS Anesthesia Pre-Procedure Meds Is the patient on any of the following meds?: SGLT2 Inhib PMFSH Active Problems Active Problems: All Active Problems Right inguinal hernia (Acute) Right inguinal hernia (Acute) Nocturnal leg cramps (Acute) Hand edema (Acute) Primary osteoarthritis of right shoulder (Acute) Right shoulder pain (Acute) Impaired fasting glucose (Acute) Annual physical exam (Acute) Cough (Acute) Overweight (BMI 25.0-29.9) (Acute) Lumbar degenerative disc disease (Acute) Benign essential hypertension (Acute) Obesity (BMI 30-39.9) (Acute) Anxiety (Acute) Vitamin D deficiency (Acute) Iron deficiency anemia (Acute) Chronic kidney disease (CKD), stage III (moderate) (Acute) Pure hypercholesterolemia (Acute) Lightheadedness (Acute) Past Medical History Medical History (Updated 03/09/24 @ 09:55 by Debra Dai RN) Back pain Overweight (BMI 25.0-29.9) Lumbar degenerative disc disease Benign essential hypertension Obesity (BMI 30-39.9) Anxiety Vitamin D deficiency Iron deficiency anemia Chronic kidney disease (CKD), stage III (moderate) Pure hypercholesterolemia Lightheadedness Family History Family History Father Brain aneurysm Mother Acute CVA (cerebrovascular accident) CVD (cardiovascular disease) Brother In good health Sister In good health Sister In good health Surgical History Surgical History (Updated 03/09/24 @ 09:50 by Debra Dai RN) H/O colonoscopy Status post biopsy of kidney History of excision of epidermal inclusion cyst Status post excision of lipoma History of eye surgery No history of previous surgery Social History Social History Housing: House Are you a primary manager critical care to a significant other at home: No Do you presently have visiting nurse or other home services: No Alcohol intake: never Patient Tobacco Use Status: Never used Tobacco e-Cigarette/Vaping Use: Never Used Second Hand Smoke Exposure: Yes Use of substances other than those prescribed or required for medical reasons: No Have you been hit, kicked, punched, or otherwise hurt by someone within the past year? If so, by whom?: No Are you DNR?: No Advance Directives: No Advance Directives Information Provided: Yes Advance Directives on File: No Recently lost weight without trying: No Eating poorly because of decreased appetite: No Nutrition Risks: No Nutritional Risk Poor oral hygiene: No service: No Current occupational status: employed Cognitive needs: No Hearing needs: No Vision needs: No Meds Allergies Allergy/AdvReac Type Severity Reaction Status Date / Time No Known Allergies Allergy Verified 02/26/24 07:44 [No Known Allergies*] Home Medications ?Medication ?Instructions ?Recorded ?Confirmed ?Last Taken ?Type cholecalciferol (vitamin D3) 25 25 mcg PO BEDTIME 01/23/22 03/13/24 03/12/24 History mcg (1,000 unit) capsule ferrous sulfate 325 mg (65 mg 325 mg PO BEDTIME 01/23/22 03/13/24 03/12/24 History iron) tablet (Feosol) atorvastatin 80 mg tablet 80 mg PO BEDTIME 03/09/24 03/13/24 03/12/24 History dapagliflozin propanediol 10 mg 10 mg PO DAILY 03/13/24 03/13/24 03/09/24 History tablet (Farxiga) Exam Height,Weight and Vital Signs: Height 5 ft 8 in Weight 88.451 kg Last Vital Signs Pulse 105 H 03/09/24 10:02 Resp 18 03/09/24 10:02 BP 170/93 H 03/09/24 10:02 Pulse Ox 96 03/09/24 10:02 O2 Del Method Room Air 03/09/24 10:02 Pertinent Lab Results Pertinent Lab Results: Laboratory Tests 01/27/24 09:12 WBC 6.5 Hgb 12.6 L Hct 37.9 L Plt Count 276 Sodium 140 Potassium 4.0 Chloride 109 H Carbon Dioxide 27 BUN 21 H Creatinine 1.53 H Narrative Narrative: EKG 03/2024 Vent. Rate : 094 BPM Atrial Rate : 094 BPM P-R Int : 122 ms QRS Dur : 082 ms QT Int : 354 ms P-R-T Axes : 057 035 052 degrees QTc Int : 442 ms Normal sinus rhythm Minimal voltage criteria for LVH, may be normal variant ( Sokolow-Grayson ) Borderline ECG No previous ECGs available Airway TM Dist: >3cm Neck ROM: Full Loose/Missing/Broken Teeth: No Heart: RR - tachy Lungs: CTAB Assessment and Plan Assessment Anesthesia Assessment: Anesthesia Plan Discussed and PAT Visit Documented by User: Patricia Rivera DO 03/13/24 12:57 HPI - Anesthesia Eval Anesthesia Pre-Procedure Meds Is the patient on any of the following meds?: SGLT2 Inhib PMFSH Past Medical History Medical History (Updated 03/09/24 @ 09:55 by Debra Dai RN) Back pain Overweight (BMI 25.0-29.9) Lumbar degenerative disc disease Benign essential hypertension Obesity (BMI 30-39.9) Anxiety Vitamin D deficiency Iron deficiency anemia Chronic kidney disease (CKD), stage III (moderate) Pure hypercholesterolemia Lightheadedness Family History Family History Father Brain aneurysm Mother Acute CVA (cerebrovascular accident) CVD (cardiovascular disease) Brother In good health Sister In good health Sister In good health Family history of problems with anesthesia: No Surgical History Surgical History (Updated 03/09/24 @ 09:50 by Debra Dai RN) H/O colonoscopy Status post biopsy of kidney History of excision of epidermal inclusion cyst Status post excision of lipoma History of eye surgery No history of previous surgery History of Problems with Anesthesia: No Social History Social History Housing: House Are you a primary manager critical care to a significant other at home: No Do you presently have visiting nurse or other home services: No Alcohol intake: never Patient Tobacco Use Status: Never used Tobacco e-Cigarette/Vaping Use: Never Used Second Hand Smoke Exposure: Yes Use of substances other than those prescribed or required for medical reasons: No Have you been hit, kicked, punched, or otherwise hurt by someone within the past year? If so, by whom?: No Are you DNR?: No Advance Directives: No Advance Directives Information Provided: Yes Advance Directives on File: No Recently lost weight without trying: No Eating poorly because of decreased appetite: No Nutrition Risks: No Nutritional Risk Poor oral hygiene: No service: No Current occupational status: employed Cognitive needs: No Hearing needs: No Vision needs: No Meds Allergies Allergy/AdvReac Type Severity Reaction Status Date / Time No Known Allergies Allergy Verified 02/26/24 07:44 [No Known Allergies*] Home Medications ?Medication ?Instructions ?Recorded ?Confirmed ?Last Taken ?Type cholecalciferol (vitamin D3) 25 25 mcg PO BEDTIME 01/23/22 03/13/24 03/12/24 History mcg (1,000 unit) capsule ferrous sulfate 325 mg (65 mg 325 mg PO BEDTIME 01/23/22 03/13/24 03/12/24 History iron) tablet (Feosol) atorvastatin 80 mg tablet 80 mg PO BEDTIME 03/09/24 03/13/24 03/12/24 History dapagliflozin propanediol 10 mg 10 mg PO DAILY 03/13/24 03/13/24 03/09/24 History tablet (Farxiga) Exam Exam Date and Time: 03/13/24 1250 Height,Weight and Vital Signs: Height 5 ft 8 in Weight 88.451 kg Last Vital Signs Pulse 105 H 03/09/24 10:02 Resp 18 03/09/24 10:02 BP 170/93 H 03/09/24 10:02 Pulse Ox 96 03/09/24 10:02 O2 Del Method Room Air 03/09/24 10:02 Vital Signs Pulse Rate 105 H 03/09/24 10:02 Respiratory Rate 18 03/09/24 10:02 Blood Pressure 170/93 H 03/09/24 10:02 Pulse Oximetry 96 03/09/24 10:02 Oxygen Delivery Method Room Air 03/09/24 10:02 Temperature 97.6 F 03/13/24 10:50 Pulse Rate 100 03/13/24 10:50 Respiratory Rate 19 03/13/24 10:50 Blood Pressure 170/93 H 03/09/24 10:02 Pulse Oximetry 99 03/13/24 10:50 Oxygen Delivery Method Room Air 03/13/24 10:50 Airway Mallampati Class: II TM Dist: >3cm Neck ROM: Full Loose/Missing/Broken Teeth: No (patient denies any loose or broken teeth) Heart: S1S2 Assessment and Plan Assessment Anesthesia Assessment: Anesthesia Plan Discussed and Chart Reviewed Final Anesthetic Review Family History of Problems with Anesthesia: No History of Problems with Anesthesia: No NPO: Yes ASA Class: II Final Preanesthetic Review: No Changes in Pt Med Stat, Meds/Allgs Chart Reviewed, Consent Obtained/Reviewed and Anes Risks/Benef Reviewed Patient Risk: Low Procedure Risk: Low Anesthetic Plan Anesthetic Plan: MAC: and Agree w/ Assess. and Plan Disposition: Standard PACU
--- NOTE | 2024-03-13 13:46 | W.PM.OPN ---
Operative Note Operative Note Date of Service: 03/13/24 Narrative: Preoperative diagnosis: [] Large symptomatic right inguinal hernia Postop diagnosis: [] The same Procedure [] open right inguinal herniorrhaphy with Bard mesh Surgeon: [] Geo Shingle Trimmer: [] Dahlia Type of Anesthesia: [] Mac Indication for surgery: [] Very large indirect right inguinal hernia. No indirect hernia demonstrated. Findings: [] Patient brought to the operating room, placed on operative table supine position, after an adequate level of MAC anesthesia was induced, the patient's right groin was prepped and draped in usual sterile fashion. Using a small right para inguinal incision, this carried down through skin, subcutaneous tissue, Deuce's fascia. External oblique fibers were opened their direction with care to isolate and preserve the ilioinguinal nerve throughout the procedure. Spermatic cord was identified and retracted from the field. Exploration of the cord demonstrated no indirect hernia. A very large indirect hernia was identified and reduced. An extra-large Bard plug was placed in this defect, and sutured inferiorly to the inguinal ligament, and superiorly to the transversalis fascia using interrupted 0 Ethibond. At completion of procedure, mesh was in good position with no gaps or tension. Wound was irrigated, secured hemostasis, and closed in the following manner; external oblique fascia was reapproximated using running 2-0 Vicryl suture. Deuce's fascia was reapproximated using interrupted 3-0 Vicryl sutures. Interrupted inverted deep dermal 3-0 Vicryl sutures followed by running subcuticular 4-0 Vicryl sutures were placed. Steri-Strips and sterile dressings were applied. Wound was infiltrated at the beginning and at the end with 0.5% Marcaine/1% lidocaine for ilioinguinal and wound infiltration. Sponge, needle, and instrument counts were reported correct. Patient tolerated the procedure well and emerged from anesthesia stable condition. EBL minimal. Ipsilateral testicle was intrascrotal at completion.
[2024-03-13] MEDS: fentaNYL citrate/PF 100 MCG/2 ML VIAL 50 MCG IVPUSH (14:18)
== END 2024-03-13 15:31 | disposition home or self-care (01) ==
PROVIDERS: PCP Internal Medicine; Visit Provider Surgery
PROC: (CPT 49505; principal; 2024-03-13 13:00)
DX: K40.90 Unilateral inguinal hernia, without obstruction or gangrene, not specified as recurrent (principal); E66.3 Overweight; Z68.29 Body mass index [BMI] 29.0-29.9, adult; I12.9 Hypertensive chronic kidney disease with stage 1 through stage 4 chronic kidney disease, or unspecified chronic kidney disease; N18.30 Chronic kidney disease, stage 3 unspecified; E78.00 Pure hypercholesterolemia, unspecified; D50.9 Iron deficiency anemia, unspecified; E55.9 Vitamin D deficiency, unspecified; M51.369 Other intervertebral disc degeneration, lumbar region without mention of lumbar back pain or lower extremity pain; F41.9 Anxiety disorder, unspecified; Z79.84 Long term (current) use of oral hypoglycemic drugs; Z79.899 Other long term (current) drug therapy; Z98.890 Other specified postprocedural states
CPT/HCPCS: 49505; 93005; C1781; J0690; J1100; J1885; J2003; J2250; J2405; J2704; J2795; J3010

== ENCOUNTER → 2024-03-13 10:44 | Outpatient (BNV) | payer OTHER, SELFPAY | PROVIDERS: PCP Internal Medicine; Visit Provider Surgery | DX: K40.90 Unilateral inguinal hernia, without obstruction or gangrene, not specified as recurrent (principal) | CPT/HCPCS: 49505 ==

== ENCOUNTER 2024-03-23 10:52 | Outpatient (AMB) | payer OTHER, SELFPAY ==
--- NOTE | 2024-03-23 10:53 | A.OFFVIS_ITS ---
Intake Visit Reasons: S/P RIH w/mesh Intake Note: Patient here s/p open right inguinal herniorrhaphy with Bard mesh. Reports incisions healing well. Patient c/o; no longer taking rx pain meds. SX; 03-13-2024. 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 Patient was doing well. Starting a diet. Having regular bowel habits. He has no longer requiring narcotics. He is increasing his activity level. It has incisional discomfort is improving. [facility] Medical History (Updated 03/09/24 @ 09:55 by Debra Dai RN) Back pain Overweight (BMI 25.0-29.9) Lumbar degenerative disc disease Benign essential hypertension Obesity (BMI 30-39.9) Anxiety Vitamin D deficiency Iron deficiency anemia Chronic kidney disease (CKD), stage III (moderate) Pure hypercholesterolemia Lightheadedness Surgical History (Updated 03/23/24 @ 11:05 by James Guardado MD) Right inguinal hernia (03/13/24) H/O colonoscopy Status post biopsy of kidney History of excision of epidermal inclusion cyst Status post excision of lipoma History of eye surgery No history of previous surgery Family History Father Brain aneurysm Mother Acute CVA (cerebrovascular accident) CVD (cardiovascular disease) Brother In good health Sister In good health Sister In good health Social History Housing: House Are you a primary grounds caretaker to a significant other at home: No Do you presently have visiting nurse or other home services: No Alcohol intake: never Patient Tobacco Use Status: Never used Tobacco e-Cigarette/Vaping Use: Never Used Second Hand Smoke Exposure: Yes service: No Current occupational status: employed Cognitive needs: No Hearing needs: No Vision needs: No Physical Exam GI Other: Abdomen is soft. Incision clean dry and intact healing very well Assessment & Plan Assessment & Plan (1) Postop check: Code(s): Z09 - Encounter for follow-up examination after completed treatment for conditions other than malignant neoplasm Category: Surgical (2) Status post right inguinal hernia repair: Code(s): Z98.890 - Other specified postprocedural states; Z87.19 - Personal history of other diseases of the digestive system Category: Surgical Plan Patient was been given local instructions, he will commence work on a predetermined date 6 weeks from surgery, he has [place] papers which will be handled by Yadira, and he will otherwise follow-up p.r.n.. All questions answered. Coding Level of Care Code Global (47024) Diagnoses Postop check Z09 Status post right inguinal hernia repair Z98.890; Z87.19
== END 2024-03-23 11:12 | disposition home or self-care (01) ==
PROVIDERS: PCP Internal Medicine; Visit Provider Surgery
DX: Z09 Encounter for follow-up examination after completed treatment for conditions other than malignant neoplasm (principal); Z98.890 Other specified postprocedural states; Z87.19 Personal history of other diseases of the digestive system
CPT/HCPCS: 99024

== ENCOUNTER 2024-07-28 10:35 | Outpatient (REF) | payer OTHER, SELFPAY ==
--- OUTSIDE RECORDS SUMMARY | 2024-07-28 12:38 | XMS_ITS | Encounter Summary ---
Author Organization [facility] Address [address] [place] [address] Phone Care Team Providers Care Hotel Services Supervisor Name Role Phone Bryce Dejesus MD Primary Care Provider +1- [phone] Encounter Details Date Type Department Care Team (Late Contact Info) Description 10/06/2021 Documentation Only [facility] [address] [place] [address] Daniel Cash MD [address] [facility] [place] [address] Social History Tobacco Use Types Packs/Day Years Used Date Smoking Tobacco: Never Smokeless Tobacco: Never Alcohol Use Standard Drinks/Week Comments No 0 (1 standard drink = 0.6 oz pur e alcohol) Sex and Gender Information Value Date Recorded Sex Assigned at Not on file Legal Sex Male 4:32 PM EST Gender Identity Not on file Sexual Orientation Not on file documented as of this encounter Plan of Treatment Upcoming Encounters Date Type Department Care Team (Late Contact Info) Description 10/07/2024 2:00 PM EDT Office Visit [facility] [address] [place] [address] Daniel Cash MD [address] [address] [place] [address] documented as of this encounter Visit Diagnoses Not on filedocumented in this encounter Care Teams Hotel Services Supervisor Relationship Specialty Start Date End Date Bryce Dejesus MD [address] [place] [address] PCP - General Internal Medicine 03/10/19 documented as of this encounter
--- OUTSIDE RECORDS SUMMARY | 2024-07-28 12:38 | XMS_ITS | Encounter Summary ---
Author Organization [facility] Address [address] [place] [address] Phone Care Team Providers Care Gas Pump Attendant Name Role Phone Bryce Dejesus MD Primary Care Provider +1- [phone] Encounter Details Date Type Department Care Team (Late Contact Info) Description 10/25/2023 Documentation Only [facility] [address] [place] [address] Yuliya Burnham [address] [place] [address] Social History Tobacco Use Types Packs/Day Years [...] Visit [facility] [address] [place] [address] Daniel Cash MD [address] [place] [address] [place] [address] documented as of this encounter Visit Diagnoses Not on filedocumented in this encounter Care Teams Gas Pump Attendant Relationship Specialty Start Date End Date Bryce Dejesus MD [address] [place] [address] PCP - General Internal Medicine 03/10/19 documented as of this encounter
--- OUTSIDE RECORDS SUMMARY | 2024-07-28 12:38 | XMS_ITS | Clinical Summary ---
Author Organization [facility] Address [address] [place] [address] Phone Care Team Providers Care Custody Assistant Name Role Phone Bryce Dejesus MD Primary Care Provider +1- [phone] Allergies No known active allergies Medications cholecalciferol (VITAMIN D-3) 25 MCG (1000 UT) tablet Comments: Filled Date: Nov 19 2016 12:00AM Patient Notes: TK 1 C PO QD Duration: 30 03/21/2016 Active atorvastatin (LIPITOR) 40 MG tablet TK 1 T PO QD 03/08/2019 Active lisinopril 10 MG tablet Take 20 mg by mouth 1 (one) time each day 09/09/2020 Active tiZANidine (ZANAFLEX) 4 MG tablet TAKE 1 TABLET BY MOUTH AT BEDTIME NEEDED FOR MUSCLE SPASMS 07/29/2023 Active Dapagliflozin Propanediol (Farxiga) 10 MG tablet Take 10 mg by mouth every morning 90 tablet 3 11/04/2023 11/04/19 25 Active dilTIAZem CD (Cardizem CD) 120 MG 24 hr capsule Take 1 capsule (120 mg total) by mouth 1 (one) time each day 30 capsule 11 04/29/2024 04/29/19 26 Active Active Problems Problem Noted Date Diagnosed Date Blood in urine 10/04/2020 Chronic kidney disease stage 3 03/16/2019 Hyperlipidemia 03/16/2019 Proteinuria 03/16/2019 Encounters Date Type Department Care Team Description 04/29/2024 1:45 PM EST Office Visit [facility] [place], [address] [place] [address] Daniel Cash MD Chronic kidney disease stage 3 (HCC) (Primary Dx) from Last 3 Months Family History Medical History Relation Comments Cancer Mother Stroke Mother CVA Relation Status Comments Father Mother Social History Tobacco Use Types Packs/Day Years Used Date Smoking Tobacco: Never Smokeless Tobacco: Never Alcohol Use Standard Drinks/Week Comments No 0 (1 standard drink = 0.6 oz pur e alcohol) Sex and Gender Information Value Date Recorded Sex Assigned at Not on file Legal Sex Male 4:32 PM EST Gender Identity Not on file Sexual Orientation Not on file Last Filed Vital Signs Vital Sign Reading Time Taken Comments Blood Pressure 114/70 03/16/2019 2:44 PM EST Pulse - - Temperature - - Respiratory Rate - - Oxygen Saturation - - Inhaled Oxygen Concentration - - Weight 94.8 kg (209 lb) 03/16/2019 2:44 PM EST Height 172.7 cm (5' 8 ) 07/07/2018 12:00 PM EDT Body Mass Index 31.78 07/07/2018 12:00 PM EDT Plan of Treatment Upcoming Encounters Date Type Department Care Team (Late st Contact Info) Description 10/07/2024 2:00 PM EDT Office Visit [facility] [address] [place] [id number] Daniel Cash MD [address] [facility] [place] [phone] Health Maintenance Due Date Last Done Comments Hepatitis B Vaccine (1 of 3 - 19+ 3-dose series) 06/16 Pneumococcal Vaccine: 50+ Years (1 of 2 - PCV) 985 Colorectal Cancer Screening: Annual FOBT 2014 Colorectal Cancer Screening: Colonoscopy 2014 Colorectal Cancer Screening: Sigmoidoscopy 2014 Influenza Vaccine (Season Ended) 2024 Insurance [facility] Care Teams Custody Assistant Relationship Specialty Start Date End Date Bryce Dejesus MD [address] [place] [address] PCP - General Internal Medicine 03/10/19
--- OUTSIDE RECORDS SUMMARY | 2024-07-28 12:38 | XMS_ITS | Encounter Summary ---
Author Organization [facility] [place] [facility], Address [address] [place] [address] Phone Care Team Providers Care Automatic Operator Name Role Phone Bryce Dejesus MD Primary Care Provider +1- [phone] Encounter Details Date Type Department Care Team (Late Contact Info) Description 07/09/2022 Documentation Only [facility] [address] [place] [address] Bryce Dejesus MD [address] [place] [id number] Social History Tobacco Use Types Packs/Day Years [...] Visit [facility] [address] [place] [address] Daniel Cash MD [address] [facility] [place] [address] documented as of this encounter Visit Diagnoses Not on filedocumented in this encounter Care Teams Automatic Operator Relationship Specialty Start Date End Date Bryce Dejesus MD [address] [place] [address] PCP - General Internal Medicine 03/10/19 documented as of this encounter
--- OUTSIDE RECORDS SUMMARY | 2024-07-28 12:38 | XMS_ITS | Encounter Summary ---
Author Organization [facility] Address [address] [place] [address] Phone Care Team Providers Care Dormitory Maid Name Role Phone Bryce Dejesus MD Primary Care Provider +1- [phone] Encounter Details Date Type Department Care Team (Late Contact Info) Description 10/03/2021 Documentation Only [facility] [address] [place] [address] Daniel Cash MD [address] [place] [address] [place] [address] Social History Tobacco Use Types Packs/Day Years Used Date Smoking Tobacco: Never Alcohol Use Standard Drinks/Week Comments [...] Visit [facility] [address] [place] [address] Daniel Cash MD [address] [facility] [place] [address] documented as of this encounter Visit Diagnoses Not on filedocumented in this encounter Care Teams Dormitory Maid Relationship Specialty Start Date End Date Bryce Dejesus MD [address] [place] [address] PCP - General Internal Medicine 03/10/19 documented as of this encounter
--- OUTSIDE RECORDS SUMMARY | 2024-07-28 12:38 | XMS_ITS | Encounter Summary ---
Author Organization [facility] Address [address] [place] [address] Phone Care Team Providers Care Grade Teacher Name Role Phone Bryce Dejesus MD Primary Care Provider +1- [phone] Encounter Details Date Type Department Care Team (Late Contact Info) Description 10/11/2022 Documentation Only [facility] [address] [place] [address] Daniel Cash MD [address] [facility] [place] [address] Social History Tobacco Use Types [...] Visit [facility] [address] [place] [address] Daniel Cash MD [address] [facility] [place] [address] documented as of this encounter Visit Diagnoses Not on filedocumented in this encounter Care Teams Grade Teacher Relationship Specialty Start Date End Date Bryce Dejesus MD [address] [place] [address] PCP - General Internal Medicine 03/10/19 documented as of this encounter
--- OUTSIDE RECORDS SUMMARY | 2024-07-28 12:38 | XMS_ITS | Encounter Summary ---
Author Organization [facility], Address [address] [place] [address] Phone Care Team Providers Care Qa Test Analyst Name Role Phone Bryce Dejesus MD Primary Care Provider +1- [phone] Encounter Details Date Type Department Care Team (Late Contact Info) Description 09/15/2019 Orders Only [facility] [address] [place] [phone] Karen Armstrong MD Proteinuria, not otherwise specified; Chronic kidney disease stage 3 (HCC); Mixed hyperlipidemia Social History Tobacco Use Types Packs/Day Years [...] Visit [facility], [address] [place] [phone] Daniel Cash MD [address] [facility] [place] [address] documented as of this encounter Visit Diagnoses Diagnosis Proteinuria, not otherwise specified Chronic kidney disease stage 3 (HCC) Mixed hyperlipidemia documented in this encounter Care Teams Qa Test Analyst Relationship Specialty Start Date End Date Bryce Dejesus MD [address] [place], [place] [id number] PCP - General Internal Medicine 03/10/19 documented as of this encounter
[2024-07-28 13:21] LABS: MANUAL DIFF FLAG NO
[2024-07-28 13:38] LABS: Appearance Urine Clear; Color Urine Yellow; Glucose Urine UA >=1000 mg/dL (Negative); Leukocyte Esterase Urine Negative (Negative); Nitrite Urine Negative (Negative); UMIC TRIGGER UACC YES; Urine Blood Negative (Negative); Urine Ketones Negative (Negative); Urine Protein 300 (3+) mg/dL (Neg-Trace)
[2024-07-28 13:47] LABS: Basophils Absolute Auto 0.1 X10*3/uL (0.0-0.2); Basophils Percent Auto 0.7 % (0-2); Eosinophils Absolute Auto 0.3 X10*3/uL (0.0-0.4); Eosinophils Percent Auto 4.6 % (0-4); Hematocrit 38.5 % (42.0-52.0); Imm Gran Abs Auto 0.04 X10*3/uL (0.00-0.03); Imm Gran Pct Auto 0.5 % (0.0-0.4); Lymphocytes Absolute Auto 1.7 X10*3/uL (1.2-4.9); Lymphocytes Percent Auto 23.3 % (20-40); Mean Corpuscular HGB Conc 33.8 g/dl (31.0-36.0); Mean Platelet Volume 10.2 fL (9.4-12.4); Monocytes Absolute Auto 0.7 X10*3/uL (0.1-1.2); Monocytes Percent Auto 9.4 % (2-11); Neutrophils Absolute Auto 4.6 x10*3/uL (2.0-8.3); Neutrophils Percent Auto 61.5 % (45-73); Platelet Count 288 X10*3/uL (160-400); Red Blood Count 4.81 X10*6/uL (4.60-5.80); White Blood Count 7.4 X10*3/uL (4.8-10.8)
[2024-07-28 13:53] LABS: Bacteria Urine None Seen (None Seen); Hyaline Casts Urine 0-2 /LPF (0-2); RBC Urine 0-2 /HPF (0-2); Squamous Epithelial Cell Urine 0-2 /HPF (0-2); WBC Urine 0-5 /HPF (0-5)
[2024-07-28 14:23] LABS: Alanine Aminotransferase 22 U/L (0-40); Albumin Level 3.3 g/dL (3.5-5.0); Alkaline Phosphatase 56 U/L (39-117); Anion Gap 9 (12-20); Aspartate Amino Transferase 28 U/L (5-37); Bilirubin Total 0.5 mg/dL (0.0-1.0); Blood Urea Nitrogen 23 mg/dL (9-16); Calcium 8.8 mg/dL (8.4-10.2); Carbon Dioxide 28 mmol/L (22-29); Chloride 107 mmol/L (96-108); Cholesterol 197 mg/dL (<200); Estimated Glomerular Filt Rate 43; Glucose Fasting 108 mg/dL (60-99); HDL Cholesterol 37 mg/dL (>40); LDL Cholesterol Calculated 125 mg/dL (<100); Potassium 4.3 mmol/L (3.3-5.1); Sodium 140 mmol/L (135-145); Total Protein 6.3 g/dL (6.5-8.0); Triglycerides 178 mg/dL (<150)
[2024-07-28 14:27] LABS: Microalbum/Creatinine Ratio Ur 1285.3 ug/mg cr (<30)
[2024-07-28 14:31] LABS: Estimated Average Glucose 120 mg/dL; Hemoglobin A1C 141.2334 umol/L; Hemoglobin A1c % 5.8 % (<6.0); Prostate Specific Antigen 2.18 ng/mL (<0.05-4.0); Total Hemoglobin (HGBA1C) 3509.2849 umol/L
[2024-07-28 14:39] LABS: TSH reflex Free T4 3.15 uIU/mL (0.32-4.0); Vitamin D 25-OH Total 42.8 ng/mL (>30)
== END 2024-07-28 10:36 | disposition home or self-care (01) ==
LOC: HO.10HDL 10:35
PROVIDERS: Visit Provider Internal Medicine
DX: Z00.00 Encounter for general adult medical examination without abnormal findings (principal); D64.9 Anemia, unspecified; E78.00 Pure hypercholesterolemia, unspecified; E11.9 Type 2 diabetes mellitus without complications; R35.1 Nocturia; E55.9 Vitamin D deficiency, unspecified; Z12.5 Encounter for screening for malignant neoplasm of prostate
CPT/HCPCS: 36415; 80053; 80061; 81001; 82043; 82306; 82570; 83036; 84153; 84443; 85025

== ENCOUNTER 2024-08-03 09:13 | Outpatient (AMB) | payer BC, SELFPAY ==
[2024-08-03 09:16] VITALS: BP 140/86; PULSE 97; O2SAT 99
--- NOTE | 2024-08-03 09:16 | MHC.PC.OV ---
Vital Signs 08/03/24 09:16 Height 5 ft 8 in Weight 197 lb 4 oz BMI 30.0 BP 140/86 H Blood Pressure Location Lt brachial Position Sitting Pulse 97 Pulse Source Pulse Oximeter Pulse Oximetry (%) 99 Oxygen Delivery Method Room Air Intake Visit Reasons: annual exam Counter Server Required: No Accompanied by: Self / Same As Patient Allergies No Known Allergies [No Known Allergies*] Allergy (Verified 08/03/24 09:32) Medication List - Last Reconciled 08/03/24 by Bryce Dejesus MD atorvastatin 80 mg PO BEDTIME cholecalciferol (vitamin D3) 25 mcg PO BEDTIME dapagliflozin propanediol (Farxiga) 10 mg PO DAILY diltiazem malate ER 120 mg PO DAILY ferrous sulfate (Feosol) 325 mg PO BEDTIME hydrocodone-acetaminophen 5-325 mg 1 tab PO Q4-6H PRN lisinopril 20 mg PO DAILY 90 days tizanidine 4 mg PO BEDTIME PRN 30 days Tobacco use date assessed: 08/03/24 Dental Screening Dental Screen Date: 08/03/24 Did you have a dental visit in the last 12 months?: Yes Did you have a dental problem in the last 6 months where you did not have access to dental care?: No Was dental information given to patient?: Patient has dentist HPI annual exam HPI Details Patient comes in today for his annual physical examination States that he feels okay He denies any headaches or dizziness Denies any chest pains, no SOB No nausea/vomiting, no abdominal pain No change in bowel habits noted Denies any acute urinary symptoms He had his follow up labs done last week - to discuss his results He had a normal screening colonoscopy done with Dr. Cloud back on 03/10/2018 and was recommended to get a repeat colonoscopy in 10 years (2027) Patient adds that one of his brother and his niece (his brother's daughter) were just diagnosed with Hampton syndrome and he is wondering if he should also get tested for Hampton and where he can get this done [facility] Medical History Back pain Overweight (BMI 25.0-29.9) Lumbar degenerative disc disease Benign essential hypertension Obesity (BMI 30-39.9) Anxiety Vitamin D deficiency Iron deficiency anemia Chronic kidney disease (CKD), stage III (moderate) Pure hypercholesterolemia Lightheadedness Surgical History (Updated 08/03/24 @ 09:35 by Bryce Dejesus MD) Right inguinal hernia (03/13/24) H/O colonoscopy Status post biopsy of kidney History of excision of epidermal inclusion cyst Status post excision of lipoma History of eye surgery No history of previous surgery Family History (Updated 08/03/24 @ 11:54 by Bryce Dejesus MD) Father Brain aneurysm Mother Acute CVA (cerebrovascular accident) CVD (cardiovascular disease) Brother Hampton syndrome Sister In good health Sister In good health Social History Housing: House Are you a primary adult live in caregiver to a significant other at home: No Do you presently have visiting nurse or other home services: No Alcohol intake: never Patient Tobacco Use Status: Never used Tobacco e-Cigarette/Vaping Use: Never Used Second Hand Smoke Exposure: Yes service: No Current occupational status: employed Cognitive needs: No Hearing needs: No Vision needs: No Questionnaire PHQ-9 Over the last 2 weeks, how often have you been bothered by any of the following problems? 1. Little interest or pleasure in doing things: not at all 2. Feeling down, depressed, or hopeless: not at all 3. Trouble falling or staying asleep, or sleeping too much: not at all 4. Feeling tired or having little energy: not at all 5. Poor appetite or overeating: not at all 6. Feeling bad about yourself - or that you are a failure or have let yourself or your family down: not at all 7. Trouble concentrating on things, such as reading the newspaper or watching television: not at all 8. Moving or speaking so slowly that other people could have noticed. Or the opposite - being so fidgety or restless that you have been moving around a lot more than usual: not at all 9. Thoughts that you would be better off or of hurting yourself in some way: not at all Total score: 0 Depression Screening Interpretation: Negative Depression Screening Done: Yes 11757 - PHQ-9 Billing: Yes Source: Developed by Drs. Franco Clayton, Jennifer Gould, Dago Melchor and colleagues, with an educational madisyn from [employer]. Thrive Questionnaire Date Thrive assessed: 08/03/24 I am a: Patient What is your living situation today?: I have a steady place to live Within the past 12 months, did the food you bought not last and you didn't have the money to get more?: Never true Within the past 12 months, did you worry whether your food would run out before you got money to buy more?: Never true Do you have trouble paying for medicines?: No Do you have trouble getting transportation to medical appointments?: No Do you have trouble paying your heating and electricity bill?: No Do you have trouble taking care of your child, family member or friend?: No Do you have trouble with day-to-day activities such as bathing, preparing meals, shopping, managing finances, etc.?: No Are you currently unemployed and looking for a job?: Yes Are you interested in more education?: No Please select the resources that you would like help with: None Currently or been in a relationship where the following occur: No concerns reported THRIVE Score: 0 AUDIT C Alcohol Use Questionnaire (AUDIT-C) 1. How often do you have a drink containing alcohol?: Never 3. How often do you have six or more drinks on one occasion?: Never Total Score: 0 Score Reviewed/Action Taken: Yes DAVON-7 AMB Questionnaire DAVON-7 Date DAVON - 7 assessed: 08/03/24 Feeling nervous, anxious, or on edge: 0 = Not at all Not being able to stop or control worryin = Not at all Worrying too much about different things: 0 = Not at all Trouble relaxin = Not at all Being so restless that it is hard to sit still: 0 = Not at all Becoming easily annoyed or irritable: 0 = Not at all Feeling afraid as if something awful might happen: 0 = Not at all Total DAVON-7 score (0-4 normal; 5-9 mild; 10-14 moderate; 15-21 severe): 0 Source: Developed by Drs. Franco Clayton, Jennifer Gould, Dago Melchor and colleagues, with an educational madisyn from [employer]. Review of Systems Const Denies chills, Denies fatigue, Denies fever(s) and Denies headache(s) Eyes Denies blurry vision, Denies change in vision, Denies irritation and Denies itchy eyes ENT Denies dysphagia, Denies dizziness, Denies otalgia, Denies headache(s), Denies neck pain, Denies odynophagia and Denies sore throat Card Denies chest pain, Denies palpitations and Denies dyspnea Resp Denies chest congestion, Denies cough, Denies dyspnea and Denies wheezing GI Denies abdominal pain, Denies bloating, Denies constipation, Denies dysphagia, Denies heartburn, Denies diarrhea, Denies nausea, Denies odynophagia and Denies vomiting Denies difficulty urinating, Denies dysuria, Denies nocturia, Denies urinary frequency and Denies urinary urgency Musc Reports back pain (over the lower back - on and off), Reports arthralgias (right shoulder, on and off), Reports muscle cramps (diffuse, mostly at night), Denies neck pain and Reports stiffness (at times) Skin/Breast Denies pruritus, Denies lesions and Denies rash Neuro Denies dizziness and Denies headache(s) Endo Denies fatigue and Denies palpitations Aller/Immun Denies itchy eyes and Denies wheezing Physical exam (Primary Care) Vital Signs: Last Vital Signs Pulse 97 08/03/24 09:16 BP 140/86 H 08/03/24 09:16 Pulse Ox 99 08/03/24 09:16 Oxygen Delivery Method Room Air 08/03/24 09:16 BMI result Body Mass Index 30.0 Tobacco/Smoking Status: Tobacco use Status Tobacco use date assessed 08/03/24 08/03/24 09:23 Patient Tobacco Use Status Never used Tobacco 08/03/24 09:23 e-Cigarette/Vaping Use Never Used 08/03/24 09:23 PHQ-9: PHQ-9 Score PHQ-9: Total score 0 08/03/24 09:38 Depression Screening Interpretation: Negative Thrive Assessment: Date of Thrive Assessment Date Thrive assessed 08/03/24 08/03/24 09:23 Currently or been in a relationship where the following occur: No concerns reported Const General: no acute distress and alert Orientation/consciousness: patient oriented x3 HENMT Head: Yes normocephalic and Yes atraumatic Ears: TM's normal bilaterally and EAC's normal General nose exam: No nasal discharge present Face and sinus: Yes normal facial exam and Yes sinuses nontender Teeth and gingiva: dentition normal Throat: Yes posterior oropharynx normal and Yes tonsils normal (no TP congestion noted) Eyes Eyelids: Yes eyelids normal Conjunctivae: conjunctivae normal Pupils: Equal, round and reactive pupils present EOM: EOMs intact bilaterally Neck Neck: Yes supple and No lymphadenopathy Thyroid: Thyroid normal Resp Auscultation: clear to auscultation bilaterally, no rales and no wheezes Cardio Rate: regular rate Rhythm: regular rhythm Heart sounds: no murmurs GI Other: (+) palpable hernia over the right inguinal/suprapubic area - this is non-tender on palpation Palpation (GI): Soft to palpation and nontender Auscultation: normal bowel sounds General: Yes no CVA tenderness Back/Spine/Pelvis Back: no CVA tenderness Thoracic/Lumbar Spine: lumbar spinal tenderness (mild) Skin Lesions: no lesions Rashes: no rashes Neuro General: patient oriented x3, moves all extremities, no focal motor deficits and CN's II-XI intact bilaterally Cranial nerves: Yes Equal, round and reactive pupils present Cognition (Neuro): normal cognition Gait exam (Neuro): Normal gait present Extrem General: Yes no clubbing, cyanosis or edema Results Reviewed Results Reviewed: Laboratory Tests 07/28/24 10:40 WBC 7.4 Hgb 13.0 L Hct 38.5 L Plt Count 288 Sodium 140 Potassium 4.3 Creatinine 1.65 H Estimated GFR 43 Fasting Glucose 108 H Hemoglobin A1c % 5.8 Calcium 8.8 AST 28 ALT 22 Triglycerides 178 H Cholesterol 197 LDL Cholesterol, Calc 125 H HDL Cholesterol 37 L Prostate Specific Ag 2.18 25-OH Vitamin D Total 42.8 TSH 3.15 Ur Specific Wilson 1.020 Urine Protein 300 (3+) H Urine Glucose (UA) >=1000 H Urine Blood Negative Urine Nitrite Negative Ur Leukocyte Esterase Negative Microalb/Creat Ratio 1285.3 H Coding Level of Care Code Est Pt Prev Care 40-64y(20869) Diagnoses Annual physical exam Z00.00 Pure hypercholesterolemia E78.00 Stage 3a chronic kidney disease N18.31 Chronic kidney disease stage 3 subtype: stage 3a (GFR 45-59) Benign essential hypertension I10 Iron deficiency anemia, unspecified iron deficiency anemia type D50.9 Iron deficiency anemia type: unspecified iron deficiency Impaired fasting glucose R73.01 Vitamin D deficiency E55.9 Primary osteoarthritis of right shoulder M19.011 Degeneration of intervertebral disc of lumbar region with discogenic back pain M51.360 Disc-related pain type: discogenic back pain only Nocturnal leg cramps G47.62 Right inguinal hernia K40.90 Anxiety F41.9 Obesity (BMI 30-39.9) E66.9 Additional Codes PHQ-9 - 33727 - PHQ-9 Billing: Yes ([id number]) Assessment & Plan Assessment & Plan (1) Annual physical exam: Code(s): Z00.00 - Encounter for general adult medical examination without abnormal findings Category: Medical Plan: Results of his labs done last week reviewed and discussed with patient He had a normal screening colonoscopy done with Dr. Cloud back on 03/10/2018 and was recommended to get a repeat colonoscopy in 10 years (2027) (2) Pure hypercholesterolemia: Code(s): E78.00 - Pure hypercholesterolemia, unspecified Category: Medical Plan: Patient is advised that his cholesterol numbers have improved from previous but are still at the higher range of normal so he should continue working on getting his numbers lower Reinforced low cholesterol diet Continue Atorvastatin 80 mg QD Can consider adding Ezetimibe 10 mg later on if his cholesterol numbers are still not at goal on Atorvastatin 80 mg Will recheck his labs and fasting lipids in 6 months for follow up (3) Chronic kidney disease (CKD), stage III (moderate): 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), 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) Code(s): N18.30 - Chronic kidney disease, stage 3 unspecified Category: Medical Qualifiers: Chronic kidney disease stage 3 subtype: stage 3a (GFR 45-59) Qualified Code(s): N18.31 - Chronic kidney disease, stage 3a Plan: His renal function appears stable on his recent labs Continue Farxiga 10 mg QD He is advised again that the best way to keep his renal function stable is to keep his blood pressure and blood sugar both tightly controlled We will continue to monitor his renal function closely Follow-up with nephrology as scheduled (4) Benign essential hypertension: Code(s): I10 - Essential (primary) hypertension Category: Medical Plan: Reinforced low sodium diet - goal is systolic BP of at least 120 mm or less due to his CKD Continue Lisinopril 20 mg QD and Verapamil ER 120 mg QD - this was added by nephrology a few months ago (5) Iron deficiency anemia: Code(s): D50.9 - Iron deficiency anemia, unspecified Category: Medical Qualifiers: Iron deficiency anemia type: unspecified iron deficiency Qualified Code(s): D50.9 - Iron deficiency anemia, unspecified Plan: Stable - this is likely due to a combination of iron deficiency and chronic kidney disease Continue Feosol 325 mg QD Will continue to monitor his CBC regularly (6) Impaired fasting glucose: Code(s): R73.01 - Impaired fasting glucose Category: Medical Plan: His FBS was up at 108 mg/dl but his HgbA1c was still normal at 5.8% on his labs done last week Reinforced low calorie/low carb diet, exercise as tolerated (7) Vitamin D deficiency: Code(s): E55.9 - Vitamin D deficiency, unspecified Category: Medical Plan: Continue Vitamin D3 1000 units daily (8) Primary osteoarthritis of right shoulder: Code(s): M19.011 - Primary osteoarthritis, right shoulder Category: Medical Plan: X-rays of the right shoulder done last year revealed (+) mild OA changes Continue OTC Tylenol PRN for pain as NSAIDs are contraindicated for him due to his CKD Will consider referring him to orthopedics if his shoulder pain gets worse (9) Lumbar degenerative disc disease: Code(s): M51.36 - Other intervertebral disc degeneration, lumbar region Category: Medical Qualifiers: Disc-related pain type: discogenic back pain only Qualified Code(s): M51.360 - Other intervertebral disc degeneration, lumbar region with discogenic back pain only Plan: Reinforced activity and weight-lifting restrictions - he admits to doing a lot of heavy lifting at work lately X-rays of the lumbar spine done back in 2010 showed mild to moderate degenerative disc disease at L5-S1 Lumbar spine x-rays repeated back in March 2021 revealed (+) L5-S1 degenerative disc disease that has progressed slightly since 04/10/2010, with no significant change in 6 mm of degenerative retrolisthesis Will recommend physical therapy if his low back pain continues to bother him or if it gets worse Continue Tizanidine 4 mg Q HS PRN (10) Nocturnal leg cramps: Code(s): G47.62 - Sleep related leg cramps Category: Medical Plan: Patient states that his leg symptoms have been better lately Continue Tizanidine 4 mg Q HS PRN (11) Right inguinal hernia: Code(s): K40.90 - Unilateral inguinal hernia, without obstruction or gangrene, not specified as recurrent Category: Medical Plan: Corrected - S/P surgical repair by Dr. Guardado on 03/13/2024 (12) Anxiety: Code(s): F41.9 - Anxiety disorder, unspecified Category: Medical Plan: He was on Hydroxyzine 25 mg 1 to 2 times a day as needed previously but he has not needed to take this for a while now Patient is instructed to call if he feels his anxiety is starting to bother him again at any time (13) Obesity (BMI 30-39.9): Code(s): E66.9 - Obesity, unspecified Category: Medical Plan: Reinforced diet/exercise as tolerated/lose weigh Plan Follow up in 6 months
--- OUTSIDE RECORDS SUMMARY | 2024-08-03 10:02 | XMS_ITS | Encounter Summary ---
Author Organization [facility] Address [address] [place] [address] Phone Care Team Providers Care Health Evaluator Name Role Phone Bryce Dejesus MD Primary Care Provider +1- [phone] Encounter Details Date Type Department Care Team (Late Contact Info) Description 10/11/2022 Documentation Only [facility] [address] [place] [address] Daniel Cash MD [address] [place] [address] [place] [address] Social History Tobacco Use Types [...] Visit [facility] [address] [place] [address] Daniel Cash MD [address] [facility] [place] [address] documented as of this encounter Visit Diagnoses Not on filedocumented in this encounter Care Teams Health Evaluator Relationship Specialty Start Date End Date Bryce Dejesus MD [address] [place] [address] PCP - General Internal Medicine 03/10/19 documented as of this encounter
--- OUTSIDE RECORDS SUMMARY | 2024-08-03 10:02 | XMS_ITS | Encounter Summary ---
Author Organization [facility] Address [address] [place] [address] Phone Care Team Providers Care Flight Security Specialist Name Role Phone Bryce Dejesus MD Primary Care Provider +1- [phone] Encounter Details Date Type Department Care Team (Late Contact Info) Description 10/03/2021 Documentation Only [facility] [address] [place] [address] Daniel Cash MD [address] [place] [address] [place] [address] Social History Tobacco Use Types [...] Visit [facility] [address] [place] [address] Daniel Cash MD [address] [place] [address] [place] [address] documented as of this encounter Visit Diagnoses Not on filedocumented in this encounter Care Teams Flight Security Specialist Relationship Specialty Start Date End Date Bryce Dejesus MD [address] [place] [address] PCP - General Internal Medicine 03/10/19 documented as of this encounter
--- OUTSIDE RECORDS SUMMARY | 2024-08-03 10:02 | XMS_ITS | Clinical Summary ---
Author Organization [facility], Address [address] [place] [address] [place] [address] Phone Care Team Providers Care Commercial Lending Relationship Manager Name Role Phone Bryce Dejesus MD Primary Care Provider +1- [phone] Allergies No known active allergies Medications cholecalciferol [...] stage 3 03/16/2019 Hyperlipidemia 03/16/2019 Proteinuria 03/16/2019 Family History Medical History Relation Comments Cancer [...] Visit [facility] [address] [place] [phone] Daniel Cash MD [address] [facility] [place] [phone] Health Maintenance Due Date Last Done Comments Hepatitis B Vaccine (1 of 3 - 19+ 3-dose series) 06/16 Pneumococcal Vaccine: 50+ Years (1 of 2 - PCV) 985 Colorectal Cancer Screening: Annual FOBT 2014 Colorectal Cancer Screening: Colonoscopy 2014 Colorectal Cancer Screening: Sigmoidoscopy 2014 Influenza Vaccine (Season Ended) 2024 Insurance [facility] Care Teams Commercial Lending Relationship Manager Relationship Specialty Start Date End Date Bryce Dejesus MD [address] [place] [address] PCP - General Internal Medicine 03/10/19
--- OUTSIDE RECORDS SUMMARY | 2024-08-03 10:02 | XMS_ITS | Encounter Summary ---
Author Organization [facility], Address [address] [place] [address] Phone Care Team Providers Care Appointment Clerk Name Role Phone Bryce Dejesus MD Primary Care Provider +1- [phone] Encounter Details Date Type Department Care Team (Late Contact Info) Description 09/15/2019 Orders Only [facility] [address] [place] [phone] Karen Armstrong MD Proteinuria, not otherwise specified; [...] Visit [facility], [address] [place] [phone] Daniel Cash MD [address] [facility] [place] [address] documented as of this encounter Visit Diagnoses Diagnosis Proteinuria, not otherwise specified Chronic kidney disease stage 3 (HCC) Mixed hyperlipidemia documented in this encounter Care Teams Appointment Clerk Relationship Specialty Start Date End Date Bryce Dejesus MD [address] [place], [place] [phone] PCP - General Internal Medicine 03/10/19 documented as of this encounter
--- OUTSIDE RECORDS SUMMARY | 2024-08-03 10:02 | XMS_ITS | Encounter Summary ---
Author Organization [facility], Address [address] [place] [address] Phone Care Team Providers Care Survey Research Analyst Name Role Phone Bryce Dejesus MD Primary Care Provider +1- [phone] Encounter Details Date Type Department Care Team (Late Contact Info) Description 07/09/2022 Documentation Only [facility] [address] [place] [address] Bryce Dejesus MD [address] [place] [id number] Social History Tobacco Use Types Packs/Day Years [...] Visit [facility] [address] [facility] [place] [address] Daniel Cash MD [address] [facility] [place] [address] documented as of this encounter Visit Diagnoses Not on filedocumented in this encounter Care Teams Survey Research Analyst Relationship Specialty Start Date End Date Bryce Dejesus MD [address] [place] [address] PCP - General Internal Medicine 03/10/19 documented as of this encounter
--- OUTSIDE RECORDS SUMMARY | 2024-08-03 10:02 | XMS_ITS | Encounter Summary ---
Author Organization [facility] Address [address] [place] [address] Phone Care Team Providers Care Supervisor Hardboard Name Role Phone Bryce Dejesus MD Primary Care Provider +1- [phone] Encounter Details Date Type Department Care Team (Late Contact Info) Description 10/25/2023 Documentation Only [facility] [address] [place] [address] Yuliya Burnham [address] [place] [address] Social History Tobacco Use Types [...] Visit [facility] [address] [place] [address] Daniel Cash MD [address] [place] [address] [place] [address] documented as of this encounter Visit Diagnoses Not on filedocumented in this encounter Care Teams Supervisor Hardboard Relationship Specialty Start Date End Date Bryce Dejesus MD [address] [place] [address] PCP - General Internal Medicine 03/10/19 documented as of this encounter
--- OUTSIDE RECORDS SUMMARY | 2024-08-03 10:02 | XMS_ITS | Encounter Summary ---
Author Organization [facility] Address [address] [place] [address] Phone Care Team Providers Care Television Maintenance Worker Name Role Phone Bryce Dejesus MD Primary Care Provider +1- [phone] Encounter Details Date Type Department Care Team (Late Contact Info) Description 10/06/2021 Documentation Only [facility] [address] [place] [address] Daniel Cash MD [address] [place] [address] [place] [address] Social History Tobacco Use Types [...] Visit [facility] [address] [place] [address] Daniel Cash MD [address] [facility] [place] [address] documented as of this encounter Visit Diagnoses Not on filedocumented in this encounter Care Teams Television Maintenance Worker Relationship Specialty Start Date End Date Bryce Dejesus MD [address] [place] [address] PCP - General Internal Medicine 03/10/19 documented as of this encounter
== END 2024-08-03 09:52 | disposition home or self-care (01) ==
LOC: HO.HMCH 09:13
PROVIDERS: PCP Internal Medicine; Visit Provider Internal Medicine
DX: Z00.00 Encounter for general adult medical examination without abnormal findings (principal); I12.9 Hypertensive chronic kidney disease with stage 1 through stage 4 chronic kidney disease, or unspecified chronic kidney disease; N18.31 Chronic kidney disease, stage 3a; Z68.30 Body mass index [BMI] 30.0-30.9, adult; E66.9 Obesity, unspecified; E78.00 Pure hypercholesterolemia, unspecified; D50.9 Iron deficiency anemia, unspecified; R73.01 Impaired fasting glucose; E55.9 Vitamin D deficiency, unspecified; M19.011 Primary osteoarthritis, right shoulder; M51.360 Other intervertebral disc degeneration, lumbar region with discogenic back pain only; G47.62 Sleep related leg cramps; K40.90 Unilateral inguinal hernia, without obstruction or gangrene, not specified as recurrent; F41.9 Anxiety disorder, unspecified

== ENCOUNTER → 2024-08-03 09:13 | Outpatient (BNVA) | payer BC, SELFPAY | PROVIDERS: PCP Internal Medicine; Visit Provider Internal Medicine | DX: Z00.00 Encounter for general adult medical examination without abnormal findings (principal); E78.00 Pure hypercholesterolemia, unspecified; I12.9 Hypertensive chronic kidney disease with stage 1 through stage 4 chronic kidney disease, or unspecified chronic kidney disease; N18.31 Chronic kidney disease, stage 3a; D50.9 Iron deficiency anemia, unspecified; R73.01 Impaired fasting glucose; E55.9 Vitamin D deficiency, unspecified; M19.011 Primary osteoarthritis, right shoulder; M51.360 Other intervertebral disc degeneration, lumbar region with discogenic back pain only; G47.62 Sleep related leg cramps; K40.90 Unilateral inguinal hernia, without obstruction or gangrene, not specified as recurrent; F41.9 Anxiety disorder, unspecified; E66.9 Obesity, unspecified; Z68.30 Body mass index [BMI] 30.0-30.9, adult; Z79.899 Other long term (current) drug therapy | CPT/HCPCS: 96127 ==

== ENCOUNTER 2024-08-10 09:53 | Outpatient (REF) | payer BC, SELFPAY ==
--- OUTSIDE RECORDS SUMMARY | 2024-08-10 11:01 | XMS_ITS | Encounter Summary ---
Author Organization [facility] [place], Address [address] [place] [address] Phone Care Team Providers Care Music Rehabilitation Therapist Name Role Phone Bryce Dejesus MD Primary Care Provider +1- [phone] Encounter Details Date Type Department Care Team (Late st Contact Info) Description 09/15/2019 Orders Only [facility] [address] [place] [phone] Karen Armstrong MD Proteinuria, not otherwise specified; [...] Visit [facility] [place], [address] [facility] [phone] Daniel Cash MD [address] [facility] [place] [address] documented as of this encounter Visit Diagnoses Diagnosis Proteinuria, not otherwise specified Chronic kidney disease stage 3 (HCC) Mixed hyperlipidemia documented in this encounter Care Teams Music Rehabilitation Therapist Relationship Specialty Start Date End Date Bryce Dejesus MD [address] [place], [place] [id number] PCP - General Internal Medicine 03/10/19 documented as of this encounter
--- OUTSIDE RECORDS SUMMARY | 2024-08-10 11:01 | XMS_ITS | Clinical Summary ---
Author Organization [facility], Address [address] [place] [address] [place] [address] Phone Care Team Providers Care Pathology Supervisor Name Role Phone Bryce Dejesus MD Primary Care Provider +1- [phone] Allergies No known active allergies Medications cholecalciferol [...] Visit [facility] [address] [place] [address] Daniel Cash MD [address] [facility] [place] [id number] Health Maintenance Due Date Last Done Comments Hepatitis B Vaccine (1 of 3 - 19+ 3-dose series) 06/16 Pneumococcal Vaccine: 50+ Years (1 of 2 - PCV) 985 Colorectal Cancer Screening: Annual FOBT 2014 Colorectal Cancer Screening: Colonoscopy 2014 Colorectal Cancer Screening: Sigmoidoscopy 2014 Influenza Vaccine (Season Ended) 2024 Insurance [facility] Care Teams Pathology Supervisor Relationship Specialty Start Date End Date Bryce Dejesus MD [address] [place] [address] PCP - General Internal Medicine 03/10/19
--- OUTSIDE RECORDS SUMMARY | 2024-08-10 11:01 | XMS_ITS | Encounter Summary ---
Author Organization [facility] Address [address] [place] [address] Phone Care Team Providers Care Nail Expert Name Role Phone Bryce Dejesus MD Primary Care Provider +1- [phone] Encounter Details Date Type Department Care Team (Late Contact Info) Description 10/11/2022 Documentation Only [facility] [address] [place] [address] Daniel Cash MD [address] [facility] [place] [address] Social History Tobacco Use Types [...] Visit [facility] [address] [place] [address] Daniel Cash MD [address] [facility] [place] [address] documented as of this encounter Visit Diagnoses Not on filedocumented in this encounter Care Teams Nail Expert Relationship Specialty Start Date End Date Bryce Dejesus MD [address] [place] [address] PCP - General Internal Medicine 03/10/19 documented as of this encounter
--- OUTSIDE RECORDS SUMMARY | 2024-08-10 11:01 | XMS_ITS | Encounter Summary ---
Author Organization [facility] Address [address] [place] [address] Phone Care Team Providers Care Hand Ii Tube Bender Name Role Phone Bryce Dejesus MD Primary Care Provider +1- [phone] Encounter Details Date Type Department Care Team (Late Contact Info) Description 10/25/2023 Documentation Only [facility] [address] [place] [address] Yuliya Burnham [address] [place] [address] Social History Tobacco Use Types [...] Visit [facility] [address] [place] [address] Daniel Cash MD [address] [place] [address] [place] [address] documented as of this encounter Visit Diagnoses Not on filedocumented in this encounter Care Teams Hand Ii Tube Bender Relationship Specialty Start Date End Date Bryce Dejesus MD [address] [place] [address] PCP - General Internal Medicine 03/10/19 documented as of this encounter
--- OUTSIDE RECORDS SUMMARY | 2024-08-10 11:01 | XMS_ITS | Encounter Summary ---
Author Organization [facility] Address [address] [place] [address] Phone Care Team Providers Care Paramedical Aide Name Role Phone Bryce Dejesus MD Primary Care Provider +1- [phone] Encounter Details Date Type Department Care Team (Late Contact Info) Description 10/03/2021 Documentation Only [facility] [address] [place] [place] [address] Daniel Cash MD [address] [place] [address] [place] [address] Social History Tobacco Use Types [...] Visit [facility] [address] [place] [place] [address] Daniel Cash MD [address] [place] [address] [place] [address] documented as of this encounter Visit Diagnoses Not on filedocumented in this encounter Care Teams Paramedical Aide Relationship Specialty Start Date End Date Bryce Dejesus MD [address] [place] [address] PCP - General Internal Medicine 03/10/19 documented as of this encounter
--- OUTSIDE RECORDS SUMMARY | 2024-08-10 11:01 | XMS_ITS | Encounter Summary ---
Author Organization [facility] Address [address] [place] [address] Phone Care Team Providers Care Ceo & [employer] Founder Name Role Phone Bryce Dejesus MD Primary Care Provider +1- [phone] Encounter Details Date Type Department Care Team (Late Contact Info) Description 10/06/2021 Documentation Only [facility] [address] [place] [address] Daniel Cash MD [address] [facility] [place] [address] Social History Tobacco Use Types [...] Visit [facility] [address] [place] [address] Daniel Cash MD [address] [facility] [place] [address] documented as of this encounter Visit Diagnoses Not on filedocumented in this encounter Care Teams Ceo & [employer] Founder Relationship Specialty Start Date End Date Bryce Dejesus MD [address] [place] [address] PCP - General Internal Medicine 03/10/19 documented as of this encounter
--- OUTSIDE RECORDS SUMMARY | 2024-08-10 11:01 | XMS_ITS | Encounter Summary ---
Author Organization [facility] [place], Address [address] [place] [address] Phone Care Team Providers Care Packaging Coordinator Name Role Phone Bryce Dejesus MD Primary Care Provider +1- [phone] Encounter Details Date Type Department Care Team (Late Contact Info) Description 07/09/2022 Documentation Only [facility] [address] [place] [address] Bryce Dejesus MD [address] [place] [address] Social History Tobacco Use Types Packs/Day Years [...] Visit [facility] [address] [facility] [place] [address] Daniel Cash MD [address] [facility] [place] [address] documented as of this encounter Visit Diagnoses Not on filedocumented in this encounter Care Teams Packaging Coordinator Relationship Specialty Start Date End Date Bryce Dejesus MD [address] [place] [address] PCP - General Internal Medicine 03/10/19 documented as of this encounter
== END 2024-08-10 09:54 | disposition home or self-care (01) ==
LOC: HO.LAB 09:53
PROVIDERS: PCP Internal Medicine; Visit Provider Internal Medicine
DX: Z80.0 Family history of malignant neoplasm of digestive organs (principal)
CPT/HCPCS: 81435

== ENCOUNTER 2025-03-12 10:01 | Outpatient (REF) | payer BC, SELFPAY ==
[2025-03-12 10:17] LABS: MANUAL DIFF FLAG NO
[2025-03-12 10:41] LABS: Hematocrit 40.0 % (42.0-52.0); Hemoglobin 12.9 g/dl (14.0-18.0); Imm Gran Abs Auto 0.04 X10*3/uL (0.00-0.03); Imm Gran Pct Auto 0.6 % (0.0-0.4); Lymphocytes Absolute Auto 2.0 X10*3/uL (1.2-4.9); Mean Corpuscular HGB Conc 32.3 g/dl (31.0-36.0); Mean Corpuscular Hemoglobin 26.5 pg (27.0-33.0); Mean Corpuscular Volume 82.1 fL (80.0-98.0); NRBC Abs Auto 0.000 X10*3/uL (0.0-0.012); NRBC Pct Auto 0.0 /100WBC (0.0-0.2); Platelet Count 253 X10*3/uL (160-400); Red Blood Count 4.87 X10*6/uL (4.60-5.80); White Blood Count 7.0 X10*3/uL (4.8-10.8)
[2025-03-12 11:33] LABS: Alanine Aminotransferase 21 U/L (0-40); Albumin Level 4.0 g/dL (3.5-5.0); Alkaline Phosphatase 55 U/L (39-117); Anion Gap 7 (12-20); Aspartate Amino Transferase 25 U/L (5-37); Blood Urea Nitrogen 24 mg/dL (9-16); Calcium 8.9 mg/dL (8.4-10.2); Carbon Dioxide 27 mmol/L (22-29); Chloride 110 mmol/L (96-108); Cholesterol 174 mg/dL (<200); Estimated Glomerular Filt Rate 44; HDL Cholesterol 31 mg/dL (>40); Potassium 3.9 mmol/L (3.3-5.1); Sodium 140 mmol/L (135-145); Total Protein 7.0 g/dL (6.5-8.0); Triglycerides 153 mg/dL (<150)
[2025-03-12 13:36] LABS: Appearance Urine Clear; Glucose Urine UA >=1000 mg/dL (Negative); PH 5.0 (5.0-9.0); Specific Gravity - Urine 1.025 (1.005-1.025); UMIC TRIGGER UACC YES
== END 2025-03-12 10:02 | disposition home or self-care (01) ==
LOC: HO.10HDL 10:01
PROVIDERS: Visit Provider Internal Medicine
DX: R73.01 Impaired fasting glucose (principal); D64.9 Anemia, unspecified; E78.00 Pure hypercholesterolemia, unspecified; E55.9 Vitamin D deficiency, unspecified; R30.0 Dysuria
CPT/HCPCS: 36415; 80053; 80061; 81001; 82306; 83036; 84443; 85025

== ENCOUNTER 2025-03-17 13:15 | Outpatient (AMB) | payer BC, SELFPAY ==
[2025-03-17 13:29] VITALS: BP 124/76; PULSE 84; O2SAT 99
--- NOTE | 2025-03-17 13:29 | A.OFFPC_ITS ---
Vital Signs 03/17/25 13:29 Height 5 ft 8 in Weight 197 lb BMI 30.0 BP 124/76 Blood Pressure Location Lt brachial Position Sitting Pulse 84 Pulse Source Pulse Oximeter Pulse Oximetry (%) 99 Oxygen Delivery Method Room Air Intake Visit Reasons: 6mth f/u Thermodynamics Engineer Required: No Accompanied by: Self / Same As Patient Allergies No Known Allergies (No Known Allergies*) Allergy (Verified 03/17/25 13:56) Medication List - Last Reconciled 03/17/25 by Bryce Dejesus MD atorvastatin 80 mg PO BEDTIME cholecalciferol (vitamin D3) 25 mcg PO BEDTIME dapagliflozin propanediol (Farxiga) 10 mg PO DAILY diltiazem malate ER 120 mg PO DAILY ferrous sulfate (Feosol) 325 mg PO BEDTIME hydrocodone-acetaminophen 5-325 mg 1 tab PO Q4-6H PRN lisinopril 20 mg PO DAILY 90 days tizanidine 4 mg PO BEDTIME PRN 30 days Tobacco use date assessed: 03/17/25 Dental Screening Dental Screen Date: 03/17/25 Did you have a dental visit in the last 12 months?: Yes Did you have a dental problem in the last 6 months where you did not have access to dental care?: No Was dental information given to patient?: Patient has dentist HPI 6mth f/u HPI Details Patient comes in today for his follow up visit States that he feels okay He denies any headaches or dizziness Denies any chest pains, no SOB No nausea/vomiting, no abdominal pain No change in bowel habits noted He had his follow up labs done a few days ago - to discuss his results COUNTS INCLUDE 234 BEDS AT THE [facility] Medical History Back pain Overweight (BMI 25.0-29.9) Lumbar degenerative disc disease Benign essential hypertension Obesity (BMI 30-39.9) Anxiety Vitamin D deficiency Iron deficiency anemia Chronic kidney disease (CKD), stage III (moderate) Pure hypercholesterolemia Lightheadedness Surgical History Right inguinal hernia (03/13/24) H/O colonoscopy Status post biopsy of kidney History of excision of epidermal inclusion cyst Status post excision of lipoma History of eye surgery No history of previous surgery Family History Father Brain aneurysm Mother Acute CVA (cerebrovascular accident) CVD (cardiovascular disease) Brother Hampton syndrome Sister In good health Sister In good health Social History Housing: House Are you a primary personal care attendant to a significant other at home: No Do you presently have visiting nurse or other home services: No Alcohol intake: never Patient Tobacco Use Status: Never used Tobacco e-Cigarette/Vaping Use: Never Used Second Hand Smoke Exposure: Yes service: No Current occupational status: employed Cognitive needs: No Hearing needs: No Vision needs: No Questionnaire PHQ-9 Over the last 2 weeks, how often have you been bothered by any of the following problems? 1. Little interest or pleasure in doing things: not at all 2. Feeling down, depressed, or hopeless: not at all 3. Trouble falling or staying asleep, or sleeping too much: not at all 4. Feeling tired or having little energy: not at all 5. Poor appetite or overeating: not at all 6. Feeling bad about yourself - or that you are a failure or have let yourself or your family down: not at all 7. Trouble concentrating on things, such as reading the newspaper or watching television: not at all 8. Moving or speaking so slowly that other people could have noticed. Or the opposite - being so fidgety or restless that you have been moving around a lot more than usual: not at all 9. Thoughts that you would be better off or of hurting yourself in some way: not at all Total score: 0 Depression Screening Interpretation: Negative Depression Screening Done: Yes [id number] - PHQ-9 Billing: Yes Source: Developed by Drs. Franco Clayton, Jennifer Gould, Dago Melchor and colleagues, with an educational madisyn from [employer]. Thrive Questionnaire Date Thrive assessed: 03/17/25 I am a: Patient What is your living situation today?: I have a steady place to live Within the past 12 months, did the food you bought not last and you didn't have the money to get more?: Never true Within the past 12 months, did you worry whether your food would run out before you got money to buy more?: Never true Do you have trouble paying for medicines?: No Do you have trouble getting transportation to medical appointments?: No Do you have trouble paying your heating and electricity bill?: No Do you have trouble taking care of your child, family member or friend?: No Do you have trouble with day-to-day activities such as bathing, preparing meals, shopping, managing finances, etc.?: No Are you currently unemployed and looking for a job?: Yes Are you interested in more education?: No Please select the resources that you would like help with: None Currently or been in a relationship where the following occur: No concerns reported THRIVE Score: 0 AUDIT C Alcohol Use Questionnaire (AUDIT-C) 1. How often do you have a drink containing alcohol?: Never 3. How often do you have six or more drinks on one occasion?: Never Total Score: 0 Score Reviewed/Action Taken: Yes DAVON-7 AMB Questionnaire DAVON-7 Date DAVON - 7 assessed: 03/17/25 Feeling nervous, anxious, or on edge: 0 = Not at all Not being able to stop or control worryin = Not at all Worrying too much about different things: 0 = Not at all Trouble relaxin = Not at all Being so restless that it is hard to sit still: 0 = Not at all Becoming easily annoyed or irritable: 0 = Not at all Feeling afraid as if something awful might happen: 0 = Not at all Total DAVON-7 score (0-4 normal; 5-9 mild; 10-14 moderate; 15-21 severe): 0 Source: Developed by Drs. Franco Clayton, Jennifer Gould, Dago Melchor and colleagues, with an educational madisyn from [employer]. Review of Systems Const Denies chills, Denies fatigue, Denies fever(s) and Denies headache(s) ENT Denies dysphagia, Denies dizziness, Denies otalgia, Denies headache(s), Denies neck pain, Denies odynophagia and Denies sore throat Card Denies chest pain, Denies palpitations and Denies dyspnea Resp Denies chest congestion, Denies cough and Denies dyspnea GI Denies abdominal pain, Denies constipation, Denies dysphagia, Denies heartburn, Denies diarrhea, Denies nausea, Denies odynophagia and Denies vomiting Denies difficulty urinating, Denies dysuria, Denies nocturia and Denies urinary frequency Musc Reports back pain (over the lower back - on and off), Reports arthralgias (right shoulder, on and off), Reports muscle cramps (diffuse, mostly at night), Denies neck pain and Reports stiffness (at times) Skin/Breast Denies rash Neuro Denies dizziness and Denies headache(s) Endo Denies fatigue and Denies palpitations Physical exam (Primary Care) Vital Signs: Last Vital Signs Pulse 84 03/17/25 13:29 BP 124/76 03/17/25 13:29 Pulse Ox 99 03/17/25 13:29 Oxygen Delivery Method Room Air 03/17/25 13:29 BMI result Body Mass Index 30.0 Tobacco/Smoking Status: Tobacco use Status Tobacco use date assessed 03/17/25 03/17/25 13:37 Patient Tobacco Use Status Never used Tobacco 03/17/25 13:37 e-Cigarette/Vaping Use Never Used 03/17/25 13:37 PHQ-9: PHQ-9 Score PHQ-9: Total score 0 03/17/25 13:58 Depression Screening Interpretation: Negative Thrive Assessment: Date of Thrive Assessment Date Thrive assessed 03/17/25 03/17/25 13:37 Currently or been in a relationship where the following occur: No concerns reported Const General: no acute distress and alert HENMT Ears: TM's normal bilaterally and EAC's normal Throat: Yes posterior oropharynx normal and Yes tonsils normal (no TP congestion noted) Neck Neck: Yes supple and No lymphadenopathy Thyroid: Thyroid normal Resp Auscultation: clear to auscultation bilaterally, no rales and no wheezes Cardio Rate: regular rate Rhythm: regular rhythm Heart sounds: no murmurs GI Palpation (GI): Soft to palpation and nontender Auscultation: normal bowel sounds General: Yes no CVA tenderness Back/Spine/Pelvis Back: no CVA tenderness Thoracic/Lumbar Spine: lumbar spinal tenderness (mild) Skin Rashes: no rashes Extrem General: Yes no clubbing, cyanosis or edema Office Procedures Flu Questionnaire Does the patient have a severe egg allergy?: No Does the patient have severe life threatening allergies?: No Does the patient have a fever or illness today?: No Has the patient ever had Guillain-Holmes Syndrome?: No Has the patient ever had any past reaction to a flu shot?: No Immunizations Fluarix [id number] (PF) 45 mcg (15 mcg x 3)/0.5 mL IM syringe Performing Provider: Bryce Dejesus MD Performing Location: [facility] Administered by: CASSY Rico on 03/17/25 14:34 Dose Route Admin Location Dispensed Lot Number Expiration Date [place] [employer] Returner 0.5 mL IM Right Deltoid 0.5 mL [id number] 10/05/25 [id number] [employer] VIS Given Date VIS Provided VIS Publication Date 03/17/25 Single Vaccine 24 Eligibility Eligibility Date Funding Source Not VFC Eligible 03/17/25 Private pneumoc 20-simón conj-dip cr(PF) 0.5 mL IM syringe Performing Provider: Bryce Dejesus MD Performing Location: [facility] Administered by: CASSY Rico on 03/17/25 14:34 Dose Route Admin Location Dispensed Lot Number Expiration Date [place] [employer] Returner 0.5 mL IM Right Deltoid 0.5 mL [id number] 12/07/25 [employer] Total Dispensed Waste 0.5 mL 0 % VIS Given Date VIS Provided VIS Publication Date 03/17/25 Single Vaccine 24 Eligibility Eligibility Date Funding Source Not VFC Eligible 03/17/25 Private Results Reviewed Results Reviewed: Laboratory Tests 03/12/25 10:08 WBC 7.0 Hgb 12.9 L Hct 40.0 L Plt Count 253 Sodium 140 Potassium 3.9 Creatinine 1.62 H Estimated GFR 44 Fasting Glucose 114 H Hemoglobin A1c % 6.0 Calcium 8.9 AST 25 ALT 21 Triglycerides 153 H Cholesterol 174 LDL Cholesterol, Calc 113 H HDL Cholesterol 31 L 25-OH Vitamin D Total 43.7 TSH 2.41 Ur Specific Bonnie 1.025 Urine Protein 100 (2+) H Urine Glucose (UA) >=1000 H Urine Blood Negative Urine Nitrite Negative Ur Leukocyte Esterase Negative Coding Level of Care Code Est Pt Level 4 (59254) Diagnoses Pure hypercholesterolemia E78.00 Stage 3a chronic kidney disease N18.31 Chronic kidney disease stage 3 subtype: stage 3a (GFR 45-59) Benign essential hypertension I10 Impaired fasting glucose R73.01 Iron deficiency anemia, unspecified iron deficiency anemia type D50.9 Iron deficiency anemia type: unspecified iron deficiency Vitamin D deficiency E55.9 Primary osteoarthritis of right shoulder M19.011 Degeneration of intervertebral disc of lumbar region with discogenic back pain M51.360 Disc-related pain type: discogenic back pain only Nocturnal leg cramps G47.62 Right inguinal hernia K40.90 Anxiety F41.9 Obesity (BMI 30-39.9) E66.9 Lesion of finger L98.9 Thigh numbness R20.0 Additional Codes PHQ-9 - 68852 - PHQ-9 Billing: Yes ([id number]) Assessment & Plan Assessment & Plan (1) Pure hypercholesterolemia: Code(s): E78.00 - Pure hypercholesterolemia, unspecified Category: Medical Plan: Patient is advised that his cholesterol numbers have improved from previous but are still at the higher range of normal so he should continue working on getting his numbers lower Reinforced low cholesterol diet Continue Atorvastatin 80 mg QD Can consider adding Ezetimibe 10 mg later on if his cholesterol numbers are still not at goal on Atorvastatin 80 mg Will recheck his labs and fasting lipids in 6 months for follow up (2) Chronic kidney disease (CKD), stage III (moderate): 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), 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) Code(s): N18.30 - Chronic kidney disease, stage 3 unspecified Category: Medical Qualifiers: Chronic kidney disease stage 3 subtype: stage 3a (GFR 45-59) Qualified Code(s): N18.31 - Chronic kidney disease, stage 3a Plan: His renal function appears stable on his recent labs Continue Farxiga 10 mg QD He is advised again that the best way to keep his renal function stable is to keep his blood pressure and blood sugar both tightly controlled We will continue to monitor his renal function closely Follow-up with nephrology as scheduled (3) Benign essential hypertension: Code(s): I10 - Essential (primary) hypertension Category: Medical Plan: Reinforced low sodium diet - goal is systolic BP of at least 120 mm or less due to his CKD Continue Lisinopril 20 mg QD and Verapamil ER 120 mg QD - this was added by nephrology a few months ago (4) Impaired fasting glucose: Code(s): R73.01 - Impaired fasting glucose Category: Medical Plan: His FBS was up at 108 mg/dl but his HgbA1c was still normal at 5.8% on his labs done last week Reinforced low calorie/low carb diet, exercise as tolerated (5) Iron deficiency anemia: Code(s): D50.9 - Iron deficiency anemia, unspecified Category: Medical Qualifiers: Iron deficiency anemia type: unspecified iron deficiency Qualified Code(s): D50.9 - Iron deficiency anemia, unspecified Plan: Stable - this is likely due to a combination of iron deficiency and chronic kidney disease Continue Feosol 325 mg QD Will continue to monitor his CBC regularly (6) Vitamin D deficiency: Code(s): E55.9 - Vitamin D deficiency, unspecified Category: Medical Plan: Continue Vitamin D3 1000 units daily (7) Primary osteoarthritis of right shoulder: Code(s): M19.011 - Primary osteoarthritis, right shoulder Category: Medical Plan: X-rays of the right shoulder done last year revealed (+) mild OA changes Continue OTC Tylenol PRN for pain as NSAIDs are contraindicated for him due to his CKD Will consider referring him to orthopedics if his shoulder pain gets worse (8) Lumbar degenerative disc disease: Code(s): M51.36 - Other intervertebral disc degeneration, lumbar region Category: Medical Qualifiers: Disc-related pain type: discogenic back pain only Qualified Code(s): M51.360 - Other intervertebral disc degeneration, lumbar region with discogenic back pain only Plan: Reinforced activity and weight-lifting restrictions - he admits to doing a lot of heavy lifting at work lately X-rays of the lumbar spine done back in 2010 showed mild to moderate degenerative disc disease at L5-S1 Lumbar spine x-rays repeated back in March 2021 revealed (+) L5-S1 degenerative disc disease that has progressed slightly since 04/10/2010, with no significant change in 6 mm of degenerative retrolisthesis Will recommend physical therapy if his low back pain continues to bother him or if it gets worse Continue Tizanidine 4 mg Q HS PRN (9) Nocturnal leg cramps: Code(s): G47.62 - Sleep related leg cramps Category: Medical Plan: Patient states that his leg symptoms have been better lately Continue Tizanidine 4 mg Q HS PRN (10) Right inguinal hernia: Code(s): K40.90 - Unilateral inguinal hernia, without obstruction or gangrene, not specified as recurrent Category: Medical Plan: Corrected - S/P surgical repair by Dr. Guardado on 03/13/2024 (11) Anxiety: Code(s): F41.9 - Anxiety disorder, unspecified Category: Medical Plan: He was on Hydroxyzine 25 mg 1 to 2 times a day as needed previously but he has not needed to take this for a while now Patient is instructed to call if he feels his anxiety is starting to bother him again at any time (12) Obesity (BMI 30-39.9): Code(s): E66.9 - Obesity, unspecified Category: Medical Plan: Reinforced diet/exercise as tolerated/lose weigh (13) Lesion of finger: Code(s): L98.9 - Disorder of the skin and subcutaneous tissue, unspecified Category: Medical (14) Thigh numbness: Code(s): R20.0 - Anesthesia of skin Category: Medical Plan Per request, flu vaccine and Prevnar-20 given today Patient is also due for his tetanus booster and we will give him his Tdap vaccine at his next appointment in the spring He is also advised to check with his pharmacy soon to see if his insurance will cover the shingles vaccine for him and if they do, he should try to get these (2 separate doses) as well To return as scheduled in August 2025 for his next annual physical examination Orders: Orders Comprehensive [place]. Panel Fast 08/05/25 E78.00 - Pure hypercholesterolemia, unspecified, N18.31 - Chronic kidney disease, stage 3a, Z00.00 - Encounter for general adult medical examination without abnormal findings Lipid Panel 08/05/25 E78.00 - Pure hypercholesterolemia, unspecified, N18.31 - Chronic kidney disease, stage 3a, Z00.00 - Encounter for general adult medical examination without abnormal findings Microalbumin, Random (w Creat) 08/05/25 N18.31 - Chronic kidney disease, stage 3a, Z00.00 - Encounter for general adult medical examination without abnormal findings Hemoglobin A1c 08/05/25 N18.31 - Chronic kidney disease, stage 3a, R73.01 - Impaired fasting glucose, Z00.00 - Encounter for general adult medical examination without abnormal findings Pneumococcal 20 Immunization Today Z23 - Encounter for immunization Complete Blood Count Auto Diff 08/05/25 D64.9 - Anemia, unspecified, N18.31 - Chronic kidney disease, stage 3a, Z00.00 - Encounter for general adult medical examination without abnormal findings TSH reflex Free T4 08/05/25 E78.00 - Pure hypercholesterolemia, unspecified, N18.31 - Chronic kidney disease, stage 3a, Z00.00 - Encounter for general adult medical examination without abnormal findings UA CC w/rflx Micro + Cult 08/05/25 N18.31 - Chronic kidney disease, stage 3a, R30.0 - Dysuria, Z00.00 - Encounter for general adult medical examination without abnormal findings Influenza [id number] Immunization Today Z23 - Encounter for immunization Referrals Dermatology Referral L98.9 - Disorder of the skin and subcutaneous tissue, unspecified
== END 2025-03-17 14:29 | disposition home or self-care (01) ==
LOC: HO.HMCH 13:16
PROVIDERS: PCP Internal Medicine; Visit Provider Internal Medicine
DX: Z23 Encounter for immunization (principal)

== ENCOUNTER → 2025-03-17 13:15 | Outpatient (BNVA) | payer BC, SELFPAY | PROVIDERS: PCP Internal Medicine; Visit Provider Internal Medicine | DX: Z23 Encounter for immunization (principal); E78.00 Pure hypercholesterolemia, unspecified; I12.9 Hypertensive chronic kidney disease with stage 1 through stage 4 chronic kidney disease, or unspecified chronic kidney disease; N18.31 Chronic kidney disease, stage 3a; R73.01 Impaired fasting glucose; D50.9 Iron deficiency anemia, unspecified; E55.9 Vitamin D deficiency, unspecified; M19.011 Primary osteoarthritis, right shoulder; M51.360 Other intervertebral disc degeneration, lumbar region with discogenic back pain only; G47.62 Sleep related leg cramps; L98.9 Disorder of the skin and subcutaneous tissue, unspecified; R20.0 Anesthesia of skin; K40.90 Unilateral inguinal hernia, without obstruction or gangrene, not specified as recurrent; F41.9 Anxiety disorder, unspecified; E66.9 Obesity, unspecified | CPT/HCPCS: 90471; 90472; 90656; 90677; 96127 ==